=== PATIENT | female | born 1970 | race African-American/Black ===

== ENCOUNTER 2016-07-18 12:58 | Emergency (ER) | payer BC ==
[~2016-07-18] VITALS: Ht 160 cm; Wt 118.0 kg
[~2016-07-18 12:58] MED LIST: HYDR-4134 PO; HYDR25TA PO; LOSA100T14 PO; METO100T5 PO
[2016-07-18] MEDS ORDERED: ONDANSETRON HCL 4MG/2ML VIAL IV STA (14:24)
[2016-07-18] MEDS ORDERED: KETOROLAC 30MG/ML VIAL IV STA (14:24)
[2016-07-18 15:01] LABS: BASOPHILS % 0.5 % (0.0-2.0); EOSINOPHILS % 4.8 % (0.0-5.0); MEAN CORPUSCULAR HEMOGLOBIN 29.9 pg (28.0-32.0); MEAN CORPUSCULAR HGB CONC 34.3 g/dL (31.0-37.0); MEAN CORPUSCULAR VOLUME 87.3 fL (81.0-99.0); MEAN PLATELET VOLUME 9.2 fl (7.4-10.4); MONOCYTES % 9.2 % (2.0-8.0); NEUTROPHILS % 62.5 % (40.0-76.0); PLATELET 193 x1000/uL (130-400); RED BLOOD CELL COUNT 4.01 mill/uL (4.2-5.4); RED CELL DISTRIBUTION WIDTH 14.6 % (11.6-14.6); WHITE BLOOD COUNT 6.7 x1000/uL (4.5-11.0)
[2016-07-18 15:04] LABS: PARTIAL THROMBOPLASTIN TIME 27.3 sec (24.0-34.0); PROTHROMBIN TIME 10.5 sec
[2016-07-18 15:05] LABS: ALBUMIN 3.1 g/dL (3.4-5.0); ANION GAP 9; CALCIUM 8.7 mg/dL (8.5-10.1); CARBON DIOXIDE 28 mEq/L (21-32); CHLORIDE 107 mEq/L (98-107); INDEX HEMOLYSI 1 (1-3); INDEX ICTERIC 1 (1-4); INDEX LIPEMIC 1 (1-3); LIPASE 118 IU/L (73-393); UREA NITROGEN BLOOD 14 mg/dL (7-21)
[2016-07-18 15:08] LABS: ALANINE AMINOTRANSFERASE 27 IU/L (13-61)
[2016-07-18 15:13] LABS: TROPONIN I < 0.02 ng/mL (0.00-0.04); eGFR > 60 mL/min (>60)
[2016-07-18 16:49] VITALS: BP 155/93
== END 2016-07-18 17:47 | disposition home or self-care (01) ==
LOC: ER 15:02
DX: M54.12 Radiculopathy, cervical region (principal); M25.512 Pain in left shoulder; I10 Essential (primary) hypertension; Z98.890 Other specified postprocedural states; Z88.8 Allergy status to other drugs, medicaments and biological substances
CPT/HCPCS: 36415; 71010; 72125; 73030; 80053; 83690; 84484; 85025; 85610; 85730; 93005; 96374; 96375; 99285; J1885; J2405; Z7610

== ENCOUNTER → 2016-10-01 | Outpatient (CLI) | payer BC | END | disposition home or self-care (01) | LOC: RAD 13:49 | PROVIDERS: ATTEND Family Medicine | DX: J18.9 Pneumonia, unspecified organism (principal); J90 Pleural effusion, not elsewhere classified; I51.7 Cardiomegaly; R06.02 Shortness of breath | CPT/HCPCS: 71020 ==

== ENCOUNTER → 2016-11-22 | Outpatient (CLI) | payer BC ==
[2016-11-22 09:55] LABS: BASOPHILS % 0.7 % (0.0-2.0); EOSINOPHILS % 1.4 % (0.0-5.0); HEMOGLOBIN. 11.2 g/dL (12.0-16.0); LYMPHOCYTES % 29.3 % (20.0-50.0); MEAN CORPUSCULAR HEMOGLOBIN 27.4 pg (28.0-32.0); MEAN CORPUSCULAR VOLUME 82.9 fL (81.0-99.0); NEUTROPHILS % 64.6 % (40.0-76.0); PLATELET 137 x1000/uL (130-400); RED CELL DISTRIBUTION WIDTH 18.9 % (11.6-14.6)
== END | disposition home or self-care (01) ==
LOC: LAB 09:34
PROVIDERS: ATTEND Family Medicine
DX: Z00.00 Encounter for general adult medical examination without abnormal findings (principal)
CPT/HCPCS: 36415; 84550; 85025; 86618

== ENCOUNTER → 2017-05-03 | Outpatient (CLI) | payer BC ==
[~2017-05-03] MED LIST changes: +METO100T16 PO; -METO100T5 PO
[2017-05-03 09:39] LABS: BASOPHILS % 0.5 % (0.0-2.0); EOSINOPHILS % 1.2 % (0.0-5.0); HEMATOCRIT. 34.5 % (36.0-48.0); HEMOGLOBIN. 11.7 g/dL (12.0-16.0); LYMPHOCYTES % 23.1 % (20.0-50.0); MEAN CORPUSCULAR HEMOGLOBIN 28.9 pg (28.0-32.0); MEAN CORPUSCULAR VOLUME 85.1 fL (81.0-99.0); MEAN PLATELET VOLUME 8.2 fl (7.4-10.4); MONOCYTES % 4.4 % (2.0-8.0); NEUTROPHILS % 70.8 % (40.0-76.0); PLATELET 161 x1000/uL (130-400); RED BLOOD CELL COUNT 4.05 mill/uL (4.2-5.4); RED CELL DISTRIBUTION WIDTH 17.6 % (11.6-14.6)
[2017-05-03 10:20] LABS: CHLORIDE 104 mEq/L (98-107)
[2017-05-03 10:49] LABS: RHEUMATOID FACTOR SCREEN POSITIVE (NEGATIVE)
[2017-05-04 19:09] LABS: ANTI-NUCLEAR ANTIBODIES DIRECT Negative (Negative)
[2017-05-05 19:06] LABS: CYC CITRULLINATED PEP IgG/IgA 5 units (0-19)
== END | disposition home or self-care (01) ==
LOC: LAB 09:15
PROVIDERS: ATTEND Internal Medicine
DX: D72.819 Decreased white blood cell count, unspecified (principal); M79.646 Pain in unspecified finger(s); E55.9 Vitamin D deficiency, unspecified; I10 Essential (primary) hypertension
CPT/HCPCS: 36415; 80053; 82306; 85025; 85651; 86038; 86140; 86200; 86430

== ENCOUNTER → 2017-07-08 | Outpatient (CLI) | payer BC | END | disposition home or self-care (01) | LOC: RAD 11:58 | PROVIDERS: ATTEND Family Medicine | DX: L03.115 Cellulitis of right lower limb (principal); M79.89 Other specified soft tissue disorders | CPT/HCPCS: 73590 ==

== ENCOUNTER 2017-07-22 11:32 | Emergency (ER) | payer BC ==
[~2017-07-22] VITALS: Ht 160 cm; Wt 120.0 kg
[2017-07-22 12:08] VITALS: BP 113/69
[2017-07-22 14:06] LABS: BASOPHILS % 0.5 % (0.0-2.0); HEMATOCRIT. 32.3 % (36.0-48.0); HEMOGLOBIN. 10.8 g/dL (12.0-16.0); LYMPHOCYTES % 30.8 % (20.0-50.0); MEAN CORPUSCULAR HEMOGLOBIN 28.2 pg (28.0-32.0); MEAN CORPUSCULAR VOLUME 84.8 fL (81.0-99.0); MEAN PLATELET VOLUME 9.2 fl (7.4-10.4); MONOCYTES % 5.6 % (2.0-8.0); NEUTROPHILS % 60.1 % (40.0-76.0); PLATELET 122 x1000/uL (130-400); RED BLOOD CELL COUNT 3.81 mill/uL (4.2-5.4); RED CELL DISTRIBUTION WIDTH 15.7 % (11.6-14.6)
[2017-07-22 14:15] LABS: INR 1.1; PROTHROMBIN TIME 11.7 sec (9.4-11.6)
[2017-07-22 14:18] LABS: CHLORIDE 106 mEq/L (98-107)
[2017-07-22 14:31] LABS: CREATINE KINASE 44 IU/L (26-192)
[2017-07-22] MEDS ORDERED: BACITRACIN ZINC 15GM TUBE TOP ONE (15:15)
[2017-07-22] MEDS ORDERED: BACITRACIN ZINC OINT UDPKT TOP NR (15:30)
[2017-07-22] MEDS ORDERED: BACITRACIN ZINC 15GM TUBE TOP NR (15:30)
== END 2017-07-22 15:45 | disposition home or self-care (01) ==
LOC: ER 14:13
DX: T63.301A Toxic effect of unspecified spider venom, accidental (unintentional), initial encounter (principal); I10 Essential (primary) hypertension; Z88.8 Allergy status to other drugs, medicaments and biological substances; Z98.890 Other specified postprocedural states; Y92.018 Other place in single-family (private) house as the place of occurrence of the external cause
CPT/HCPCS: 36415; 80053; 82550; 85025; 85610; 99284; Z7610

== ENCOUNTER → 2017-08-27 | Outpatient (CLI) | payer BC | END | disposition home or self-care (01) | LOC: MAMMO 10:04 | PROVIDERS: ATTEND Family Medicine | DX: Z12.31 Encounter for screening mammogram for malignant neoplasm of breast (principal) | CPT/HCPCS: 77067 ==

== ENCOUNTER 2017-09-18 08:51 | Inpatient (IN) | payer BC ==
[~2017-09-18] VITALS: Ht 160 cm; Wt 94.3 kg
[2017-09-18] MEDS ORDERED: VANCOMYCIN 1 G PREMIX 200 ML IV ONE (10:45)
[2017-09-18] MEDS ORDERED: KETOROLAC 30MG/ML VIAL IV ONE (10:45)
[2017-09-18] MEDS ORDERED: PIPERACILLIN/TAZ 3.375G PREMIX 50 ML IV ONE (10:45)
[2017-09-18] MEDS ORDERED: SODIUM CHLORIDE 0.9% 1000ML BAG (SEPSIS BOLUS) IV ONE (10:45)
[2017-09-18 11:15] LABS: BASOPHILS % 0.6 % (0.0-2.0); EOSINOPHILS % 1.3 % (0.0-5.0); HEMATOCRIT. 33.4 % (36.0-48.0); HEMOGLOBIN. 10.8 g/dL (12.0-16.0); LYMPHOCYTES % 24.9 % (20.0-50.0); MEAN CORPUSCULAR HEMOGLOBIN 27.4 pg (28.0-32.0); MEAN CORPUSCULAR VOLUME 84.3 fL (81.0-99.0); MEAN PLATELET VOLUME 8.4 fl (7.4-10.4); MONOCYTES % 4.3 % (2.0-8.0); NEUTROPHILS % 68.9 % (40.0-76.0); PLATELET 202 x1000/uL (130-400); RED BLOOD CELL COUNT 3.96 mill/uL (4.2-5.4); RED CELL DISTRIBUTION WIDTH 17.7 % (11.6-14.6)
[2017-09-18 11:21] LABS: CHLORIDE 116 mEq/L (98-107)
[2017-09-18 11:23] LABS: INR 1.1; PARTIAL THROMBOPLASTIN TIME 28.4 sec (23.4-31.0); PROTHROMBIN TIME 11.4 sec (9.4-11.6)
[2017-09-18 12:38] LABS: HCG SCREEN NEGATIVE
[2017-09-18] MEDS ORDERED: CLONIDINE 0.1MG TABLET PO PRN (13:15)
[2017-09-18] MEDS ORDERED: MORPHINE SULFATE 4 MG/ML CPJ (NOT FOR IM USE) IV PRN (13:15)
[2017-09-18] MEDS ORDERED: ONDANSETRON HCL 4MG/2ML VIAL IV PRN (13:15)
[2017-09-18] MEDS ORDERED: ACETAMINOPHEN 325MG TABLET PO PRN (13:15)
[2017-09-18 15:40] VITALS: BP 137/77
[2017-09-18 15:51] VITALS: BP 137/77
[2017-09-18] MEDS: METOPROLOL TARTRATE 25MG TABLET PO SCH (16:30)
[2017-09-18] MEDS: AMLODIPINE 5MG TABLET PO SCH (16:44)
[2017-09-18] MEDS: SODIUM CHLORIDE 0.45% 1,000 ML IV SCH (16:45)
[2017-09-18] MEDS: PIPERACILLIN/TAZ 3.375G PREMIX 50 ML IV SCH (18:07)
[2017-09-18] MEDS: HYDROMORPHONE HCL/PF 2MG/ML CPJ IV PRN ×2 (18:07→21:59)
[2017-09-18] MEDS ORDERED: VANCOMYCIN 2,000 MG in DEXT 5% WATER 500 ML IV NR (18:30)
[2017-09-18 20:00] VITALS: BP 132/81
[2017-09-19] VITALS: BP 129/80
[2017-09-19] MEDS: PIPERACILLIN/TAZ 3.375G PREMIX 50 ML IV SCH ×4 (00:07→18:06)
[2017-09-19] MEDS: HYDROMORPHONE HCL/PF 2MG/ML CPJ IV PRN ×5 (02:06→21:03)
[2017-09-19 04:00] VITALS: BP 124/82
[2017-09-19 07:08] LABS: CHLORIDE 114 mEq/L (98-107)
[2017-09-19 07:09] LABS: EOSINOPHILS % 2.1 % (0.0-5.0); HEMOGLOBIN. 9.6 g/dL (12.0-16.0); LYMPHOCYTES % 28.9 % (20.0-50.0); MEAN CORPUSCULAR HEMOGLOBIN 27.4 pg (28.0-32.0); MEAN CORPUSCULAR VOLUME 82.8 fL (81.0-99.0); MEAN PLATELET VOLUME 8.4 fl (7.4-10.4); MONOCYTES % 6.7 % (2.0-8.0); NEUTROPHILS % 61.3 % (40.0-76.0); PLATELET 174 x1000/uL (130-400); RED CELL DISTRIBUTION WIDTH 17.2 % (11.6-14.6)
[2017-09-19 07:24] LABS: LDL CHOLESTEROL 73 mg/dL (5-100)
[2017-09-19 07:25] LABS: CREATINE KINASE 95 IU/L (26-192)
[2017-09-19 07:26] LABS: HDL CHOLESTEROL 26 mg/dL (40-59)
[2017-09-19 07:28] LABS: CREATINE KINASE MB FRACTION 1.1 ng/mL (0.5-3.6)
[2017-09-19] MEDS ORDERED: LIDOCAINE HCL/EPINEPHRINE 1%-EPI 1:100,000 20 ML VIAL ONE (07:31)
[2017-09-19] MEDS ORDERED: BUPIVACAINE HCL/PF 0.25% (2.5MG/ML) 10ML ONE (07:31)
[2017-09-19] MEDS ORDERED: SODIUM CHLORIDE 0.9% 1,000 ML IV ONE (08:22)
[2017-09-19] MEDS ORDERED: ONDANSETRON HCL 4MG/2ML VIAL IV PRN (08:30)
[2017-09-19] MEDS ORDERED: HYDROMORPHONE HCL/PF 2MG/ML CPJ IV PRN (08:30)
[2017-09-19] MEDS ORDERED: MEPERIDINE HCL/PF 25MG/ML CPJ IV PRN (08:30)
[2017-09-19 10:20] VITALS: BP 119/69
[2017-09-19 12:00] VITALS: BP 140/75
[2017-09-19] MEDS: AMLODIPINE 5MG TABLET PO SCH (12:41)
[2017-09-19] MEDS: METOPROLOL TARTRATE 25MG TABLET PO SCH ×2 (12:42→17:17)
[2017-09-19] MEDS: VANCOMYCIN 1250MG in DEXTROSE 5% WATER 250ML IV SCH (13:52)
[2017-09-19] MEDS ORDERED: TETANUS, DIPHTHERIA, PERTUSSIS VAC/PF 0.5ML (>7YR OLD) IM ONE (15:15)
[2017-09-19 16:00] VITALS: BP 121/78
[2017-09-19] MEDS: SODIUM CHLORIDE 0.45% 1,000 ML IV SCH ×2 (18:14→21:03)
[2017-09-19] MEDS ORDERED: VANCOMYCIN 1 G PREMIX 200 ML IV SCH (18:30)
[2017-09-19 20:00] VITALS: BP 139/79
[2017-09-20] VITALS: BP 122/69
[2017-09-20] MEDS: PIPERACILLIN/TAZ 3.375G PREMIX 50 ML IV SCH ×4 (00:01→17:12)
[2017-09-20] MEDS: HYDROMORPHONE HCL/PF 2MG/ML CPJ IV PRN ×5 (00:09→17:11)
[2017-09-20 04:00] VITALS: BP 129/78
[2017-09-20] MEDS: VANCOMYCIN 1250MG in DEXTROSE 5% WATER 250ML IV SCH (05:52)
[2017-09-20 08:02] VITALS: BP 117/60
[2017-09-20] MEDS: METOPROLOL TARTRATE 25MG TABLET PO SCH ×2 (08:30→17:16)
[2017-09-20] MEDS: AMLODIPINE 5MG TABLET PO SCH (08:30)
[2017-09-20] MEDS: SODIUM CHLORIDE 0.45% 1,000 ML IV SCH (08:38)
[2017-09-20] MEDS ORDERED: TETANUS, DIPHTHERIA, PERTUSSIS VAC/PF 0.5ML (>7YR OLD) IM ONE (09:30)
[2017-09-20 12:00] VITALS: BP 144/82
[2017-09-20 16:00] VITALS: BP 125/97
[2017-09-20 17:11] VITALS: BP 144/82
== END 2017-09-20 19:28 | disposition home health service (06) | DRG 571 ==
LOC: ER 08:51 → 7WST 12:47 → ENRESERV 12:55 → CANRESERV 12:55 → ENRESERV 14:26 → 7WST 15:58
PROVIDERS: ADMIT Internal Medicine Nephrology; ATTEND Internal Medicine Nephrology
PROC: 0JBQ0ZZ Excision of Right Foot Subcutaneous Tissue and Fascia, Open Approach (ICD-10-PCS; principal; 2017-09-19 07:30)
DX: L97.319 Non-pressure chronic ulcer of right ankle with unspecified severity (principal); N17.9 Acute kidney failure, unspecified; E46 Unspecified protein-calorie malnutrition; E87.2 Acidosis; I10 Essential (primary) hypertension; R00.1 Bradycardia, unspecified; D72.819 Decreased white blood cell count, unspecified; B96.5 Pseudomonas (aeruginosa) (mallei) (pseudomallei) as the cause of diseases classified elsewhere; B95.2 Enterococcus as the cause of diseases classified elsewhere; D64.9 Anemia, unspecified; T44.7X5A Adverse effect of beta-adrenoreceptor antagonists, initial encounter; W57.XXXA Bitten or stung by nonvenomous insect and other nonvenomous arthropods, initial encounter; Z79.899 Other long term (current) drug therapy; Z88.8 Allergy status to other drugs, medicaments and biological substances; Y93.89 Activity, other specified; Y92.89 Other specified places as the place of occurrence of the external cause; Y99.8 Other external cause status
CPT/HCPCS: 36415; 71045; 80053; 80061; 82550; 82553; 84443; 84484; 84703; 85025; 85610; 85651; 85730; 86850; 86900; 87040; 87070; 87075; 87077; 87186; 87205; 88304; 90715; 93005; 93306; 93971; 96365; 96367; 96375; 99285; J0330; J1170; J1885; J2250; J2270; J2405; J2543; J2704; J2765; J3010; J3370; J3490; J7030; J7060

== ENCOUNTER → 2017-10-08 | Outpatient (CLI) | payer BC ==
[~2017-10-08] MED LIST changes: +AMLO5TAB88 PO; +HYDR-4009 PO; -HYDR-4134 PO; +METO-396 PO; -METO100T16 PO
[2017-10-08 10:10] LABS: HEMATOCRIT. 31.3 % (36.0-48.0); HEMOGLOBIN. 10.3 g/dL (12.0-16.0); MEAN CORPUSCULAR HEMOGLOBIN 26.9 pg (28.0-32.0); MEAN CORPUSCULAR VOLUME 81.4 fL (81.0-99.0); MEAN PLATELET VOLUME 7.4 fl (7.4-10.4); PLATELET 263 x1000/uL (130-400); RED BLOOD CELL COUNT 3.84 mill/uL (4.2-5.4); RED CELL DISTRIBUTION WIDTH 15.9 % (11.6-14.6)
[2017-10-08 10:19] LABS: INR 1.1; PARTIAL THROMBOPLASTIN TIME 27.5 sec (23.4-31.0); PROTHROMBIN TIME 11.5 sec (9.4-11.6)
[2017-10-08 10:20] LABS: HCG SCREEN NEGATIVE
[2017-10-08 11:05] LABS: CHLORIDE 103 mEq/L (98-107)
[2017-10-08 11:40] LABS: PLATELET ESTIMATE NORMAL
== END | disposition home or self-care (01) ==
LOC: LAB 08:49
PROVIDERS: ATTEND Podiatrist Foot & Ankle Surgery
DX: T81.89XA Other complications of procedures, not elsewhere classified, initial encounter (principal); I10 Essential (primary) hypertension
CPT/HCPCS: 36415; 80048; 84703; 85025; 85610; 85730

== ENCOUNTER 2017-10-11 05:10 | Day surgery (SDC) | payer BC ==
[~2017-10-11] VITALS: Ht 160 cm; Wt 86.2 kg
[2017-10-11] MEDS ORDERED: LACTATED RINGERS 1,000 ML IV SCH (06:00)
[2017-10-11] MEDS ORDERED: PROPOFOL 200MG/20ML VIAL IV ONE (07:20)
[2017-10-11] MEDS ORDERED: GLYCOPYRROLATE 0.2 MG/ML 2ML VIAL ONE (07:26)
[2017-10-11] MEDS ORDERED: LIDOCAINE HCL/PF 1% 10 MG/ML 5ML VIAL ONE (07:27)
[2017-10-11] MEDS ORDERED: FENTANYL CITRATE/PF 50MCG/ML 5ML VIAL ONE (07:30)
[2017-10-11] MEDS ORDERED: NORMAL SALINE 0.9% 10 ML SYR ONE (07:32)
[2017-10-11] MEDS ORDERED: MINERAL OIL 10 ML VIAL MC ONE (07:32)
[2017-10-11] MEDS ORDERED: BACITRACIN 50,000 UNITS/VIAL ONE (07:32)
[2017-10-11] MEDS ORDERED: BUPIVACAINE HCL/EPINEPHRINE 0.5%/0.0005 30ML ONE (07:42)
[2017-10-11] MEDS ORDERED: HYDR-4134 PO (08:51)
== END 2017-10-11 10:30 | disposition home or self-care (01) ==
LOC: OR 05:10
PROVIDERS: ATTEND Podiatrist Foot & Ankle Surgery
DX: L97.919 Non-pressure chronic ulcer of unspecified part of right lower leg with unspecified severity (principal); I10 Essential (primary) hypertension; E46 Unspecified protein-calorie malnutrition; D64.9 Anemia, unspecified; J45.909 Unspecified asthma, uncomplicated; Z88.8 Allergy status to other drugs, medicaments and biological substances; Z79.899 Other long term (current) drug therapy; Z80.41 Family history of malignant neoplasm of ovary; Z82.49 Family history of ischemic heart disease and other diseases of the circulatory system; Z98.890 Other specified postprocedural states
CPT/HCPCS: 15100; 36415; 84132; A4216; J0171; J3010; J3490; J7120; J2704

== ENCOUNTER 2017-12-06 08:40 | Inpatient (IN) | payer BC ==
[~2017-12-06] VITALS: Ht 160 cm; Wt 120.8 kg
[2017-12-06] VITALS (61 sets, daily range): BP systolic 79–169; BP diastolic 39–133
[~2017-12-06 08:40] MED LIST changes: +HYDR-4134 PO; -HYDR25TA PO
[2017-12-06] MEDS ORDERED: METHYLPREDNISOLONE SOD SUCC 125 MG/2 ML VIAL IV STA (09:04)
[2017-12-06] MEDS ORDERED: ALBUTEROL (0.083%) 2.5MG/3ML NEB HHN STA (09:04)
[2017-12-06] MEDS ORDERED: IPRATROPIUM BROMIDE (0.02%) 0.5MG/2.5ML NEB HHN STA (09:04)
[2017-12-06] MEDS ORDERED: MAGNESIUM 2 G PREMIX 50 ML IV STA (09:04)
[2017-12-06] MEDS ORDERED: ALBUTEROL (0.083%) 2.5MG/3ML NEB ONE (09:07)
[2017-12-06] MEDS ORDERED: IPRATROPIUM BROMIDE (0.02%) 0.5MG/2.5ML NEB ONE (09:07)
[2017-12-06 09:14] LABS: HEMATOCRIT. 21.5 % (36.0-48.0); MEAN CORPUSCULAR HEMOGLOBIN 26.4 pg (28.0-32.0); MEAN CORPUSCULAR VOLUME 84.4 fL (81.0-99.0); MEAN PLATELET VOLUME 9.1 fl (7.4-10.4); PLATELET 127 x1000/uL (130-400); RED BLOOD CELL COUNT 2.55 mill/uL (4.2-5.4); RED CELL DISTRIBUTION WIDTH 18.7 % (11.6-14.6)
[2017-12-06 09:21] LABS: CHLORIDE 103 mEq/L (98-107)
[2017-12-06 09:24] LABS: D-DIMER 3.06 mg/L FEU (<0.50); INR 1.3; PARTIAL THROMBOPLASTIN TIME 22.1 sec (23.4-31.0); PROTHROMBIN TIME 13.4 sec (9.1-11.1)
[2017-12-06 09:28] LABS: HEMOGLOBIN. 6.7 g/dL (12.0-16.0)
[2017-12-06 09:36] LABS: HCG SCREEN NEGATIVE
[2017-12-06] MEDS ORDERED: MAGNESIUM SULFATE 2 GM in DEXTROSE 5% WATER 50 ML IV ONE (09:45)
[2017-12-06 09:57] LABS: ATYPICAL LYMPHOCYTES 2; NUCLEATED RED BLOOD CELLS 1 /100 WBC; PLATELET ESTIMATE NORMAL
[2017-12-06] MEDS ORDERED: MIDAZOLAM HCL 50 MG in DEXTROSE 5% WATER 40 ML IV ONE ×2 (10:00→11:45)
[2017-12-06] MEDS ORDERED: FUROSEMIDE 40MG/4ML VIAL IVP ONE (10:00)
[2017-12-06] MEDS ORDERED: VECURONIUM BROMIDE 10 MG/VIAL IV ONE (10:00)
[2017-12-06] MEDS ORDERED: SUCCINYLCHOLINE CHLORIDE 200MG/10ML IV ONE ×2 (10:00→13:11)
[2017-12-06] MEDS ORDERED: ETOMIDATE 2MG/ML 10ML VIAL IV ONE ×2 (10:00→13:11)
[2017-12-06] MEDS ORDERED: LORAZEPAM 2MG/ML CPJ IV ONE ×2 (10:00)
[2017-12-06] MEDS ORDERED: LEVOFLOXACIN 500MG PREMIX 100 ML IV ONE (10:15)
[2017-12-06 10:23] LABS: BG BASE EXCESS -14.2 mmol/L (-2.0-2.0); BG DEOXYHEMOGLOBIN 31.5 % (0.0-5.0); BG FRACTION INSPIRED OXYGEN 100; BG HCO3 ACT 14.6 mmol/L (22.0-26.0); BG METHEMOGLOBIN 0.5 % (0.0-1.5); BG PCO2 49.3 mmHg (35.0-45.0); BG SAMPLE SITE LEFT RADIAL; BG TIDAL VOLUME(mL) 600 mL; BG TOTAL HEMOGLOBIN 7.6 g/dL (12.0-18.0); BG VENT MODE VENT - A/C; BG VENT RATE 14 set
[2017-12-06] MEDS ORDERED: LEVOFLOXACIN 500MG PREMIX 100 ML IV SCH (10:30)
[2017-12-06] MEDS ORDERED: VANCOMYCIN 1 G PREMIX 200 ML IV SCH (10:30)
[2017-12-06] MEDS ORDERED: MORPHINE SULFATE 4 MG/ML CPJ (NOT FOR IM USE) IV PRN (10:30)
[2017-12-06] MEDS ORDERED: ACETAMINOPHEN 650MG SUPP PR PRN (10:30)
[2017-12-06] MEDS ORDERED: SODIUM BICARBONATE 8.4% 1 MEQ/ML 50ML SYR IV ONE ×3 (10:30→10:45)
[2017-12-06] MEDS ORDERED: NITROGLYCERIN 50MG PREMIX 250 ML IV ONE ×3 (10:30→10:35)
[2017-12-06] MEDS ORDERED: ONDANSETRON HCL 4MG/2ML INJ IV PRN (10:30)
[2017-12-06 10:58] LABS: CLARITY URINE CLOUDY (CLEAR); COLOR URINE DARK YELLOW (YELLOW); KETONES URINE TRACE (NEGATIVE); LEUKOCYTE ESTERASE URINE NEGATIVE (NEGATIVE); NITRITE URINE NEGATIVE (NEGATIVE); OCCULT BLOOD URINE 3+ (NEGATIVE); PROTEIN URINE 3+ (NEGATIVE); SPECIFIC GRAVITY URINE 1.018 (1.005-1.030)
[2017-12-06 11:27] LABS: *AMPHETAMINES SCREEN URINE NEGATIVE (NEGATIVE); *BARBITURATES SCREEN URINE NEGATIVE (NEGATIVE); *BENZODIAZEPINES SCREEN URINE NEGATIVE (NEGATIVE); *COCAINE SCREEN URINE NEGATIVE (NEGATIVE)
[2017-12-06 11:28] LABS: CANNABINOID URINE SCREEN NEGATIVE (NEGATIVE); METHADONE URINE SCREEN NEGATIVE (NEGATIVE); PHENCYCLIDINE URINE SCREEN NEGATIVE (NEGATIVE)
[2017-12-06 11:39] LABS: OPIATES URINE SCREEN PRESUMTIVE POSITIVE (NEGATIVE)
[2017-12-06] MEDS ORDERED: PIPERACILLIN/TAZ 3.375G PREMIX 50 ML IV NR (11:43)
[2017-12-06] MEDS ORDERED: SODIUM BICARBONATE 100 MEQ in DEXTROSE 5% WATER 1,000 ML IV SCH (13:00)
[2017-12-06] MEDS ORDERED: SODIUM CHLORIDE 0.9% 10ML VIAL ONE (13:11)
[2017-12-06 13:21] LABS: BG BASE EXCESS -7.4 mmol/L (-2.0-2.0); BG CARBOXYHEMOGLOBIN 0.8 % (0.5-1.5); BG DEOXYHEMOGLOBIN 3.4 % (0.0-5.0); BG FRACTION INSPIRED OXYGEN 100; BG HCO3 ACT 18.5 mmol/L (22.0-26.0); BG METHEMOGLOBIN 0.6 % (0.0-1.5); BG OXYGEN SATURATION 96.6 % (92.0-98.5); BG OXYHEMOGLOBIN 95.2 % (94.0-97.0); BG PCO2 39.1 mmHg (35.0-45.0); BG PH 7.292 (7.350-7.450); BG PO2 107.8 mmHg (75.0-100.0); BG SAMPLE SITE RIGHT RADIAL; BG TIDAL VOLUME(mL) 500 mL; BG TOTAL HEMOGLOBIN 6.7 g/dL (12.0-18.0); BG VENT MODE VENT - A/C; BG VENT RATE 20 set
[2017-12-06] MEDS: PANTOPRAZOLE SODIUM 40 MG/VIAL IV SCH (13:47)
[2017-12-06 14:42] LABS: FOLIC ACID (FOLATE) SERUM 15.8 ng/mL (>5.38)
[2017-12-06] MEDS ORDERED: VANCOMYCIN 2,000 MG in DEXT 5% WATER 500 ML IV SCH (15:00)
[2017-12-06 15:26] LABS: T4 FREE 0.91 ng/dL (0.76-1.46)
[2017-12-06 15:38] LABS: HEMOGLOBIN 5.8 g/dL (12.0-16.0)
[2017-12-06 15:45] LABS: AMMONIA 40 uMol/L (<32)
[2017-12-06] MEDS: IPRATROPIUM BROMIDE (0.02%) 0.5MG/2.5ML NEB HHN SCH ×2 (15:59→20:45)
[2017-12-06] MEDS ORDERED: FUROSEMIDE 40MG/4ML VIAL IV SCH (17:15)
[2017-12-06] MEDS: PHENYLEPHRINE 40 MG in DEXT 5% WATER 246 ML IV PRN (17:24)
[2017-12-06] MEDS: PIPERACILLIN/TAZ 3.375G PREMIX 50 ML IV SCH (18:09)
[2017-12-06] MEDS: PROPOFOL 10MG/ML 100ML 100 ML IV PRN ×2 (20:24→22:57)
[2017-12-06 22:09] LABS: HEMATOCRIT 23.2 % (36.0-48.0); HEMOGLOBIN 7.6 g/dL (12.0-16.0)
[2017-12-07] VITALS (95 sets, daily range): BP systolic 79–136; BP diastolic 39–88
[2017-12-07] MEDS: PIPERACILLIN/TAZ 3.375G PREMIX 50 ML IV SCH ×3 (00:43→12:10)
[2017-12-07] MEDS: IPRATROPIUM BROMIDE (0.02%) 0.5MG/2.5ML NEB HHN SCH ×7 (00:59→23:31)
[2017-12-07] MEDS: PROPOFOL 10MG/ML 100ML 100 ML IV PRN ×4 (04:46→19:41)
[2017-12-07 05:39] LABS: HEMATOCRIT. 24.9 % (36.0-48.0); HEMOGLOBIN. 8.2 g/dL (12.0-16.0); MEAN CORPUSCULAR HEMOGLOBIN 26.9 pg (28.0-32.0); MEAN CORPUSCULAR VOLUME 81.6 fL (81.0-99.0); RED BLOOD CELL COUNT 3.05 mill/uL (4.2-5.4); RED CELL DISTRIBUTION WIDTH 18.6 % (11.6-14.6)
[2017-12-07 07:40] LABS: NUCLEATED RED BLOOD CELLS 3 /100 WBC; PLATELET ESTIMATE DECREASED
[2017-12-07 07:46] LABS: BG BASE EXCESS -1.2 mmol/L (-2.0-2.0); BG CARBOXYHEMOGLOBIN 0.3 % (0.5-1.5); BG DEOXYHEMOGLOBIN 0.6 % (0.0-5.0); BG HCO3 ACT 21.2 mmol/L (22.0-26.0); BG METHEMOGLOBIN 0.4 % (0.0-1.5); BG OXYGEN SATURATION 99.4 % (92.0-98.5); BG OXYHEMOGLOBIN 98.7 % (94.0-97.0); BG PCO2 27.3 mmHg (35.0-45.0); BG PH 7.508 (7.350-7.450); BG PO2 267.8 mmHg (75.0-100.0); BG SAMPLE SITE RIGHT RADIAL; BG TIDAL VOLUME(mL) 500 mL; BG TOTAL HEMOGLOBIN 9.2 g/dL (12.0-18.0)
[2017-12-07] MEDS ORDERED: VANCOMYCIN 1250MG in DEXTROSE 5% WATER 250ML IV SCH (09:00)
[2017-12-07 09:19] LABS: BG VENT MODE VENT/AC
[2017-12-07 09:20] LABS: BG VENT RATE 20 set
[2017-12-07] MEDS: PANTOPRAZOLE SODIUM 40 MG/VIAL IV SCH (09:57)
[2017-12-07] MEDS: DEXT 5%/0.45% NACL 1000ML 1,000 ML IV SCH (09:57)
[2017-12-07 13:52] LABS: PLATELET 63 x1000/uL (130-400)
[2017-12-07] MEDS ORDERED: LIDOCAINE HCL/PF 1% 2ML VIAL ONE (14:02)
[2017-12-07] MEDS: PHENYLEPHRINE 40 MG in DEXT 5% WATER 246 ML IV PRN (14:40)
[2017-12-07 16:55] LABS: BG BASE EXCESS -1.5 mmol/L (-2.0-2.0); BG CARBOXYHEMOGLOBIN 0.2 % (0.5-1.5); BG DEOXYHEMOGLOBIN 3.8 % (0.0-5.0); BG HCO3 ACT 21.4 mmol/L (22.0-26.0); BG METHEMOGLOBIN 0.4 % (0.0-1.5); BG OXYGEN SATURATION 96.2 % (92.0-98.5); BG OXYHEMOGLOBIN 95.6 % (94.0-97.0); BG PH 7.485 (7.350-7.450); BG PO2 88.7 mmHg (75.0-100.0); BG SAMPLE SITE RIGHT RADIAL; BG TIDAL VOLUME(mL) 600 mL; BG TOTAL HEMOGLOBIN 8.8 g/dL (12.0-18.0); BG VENT MODE VENT - A/C; BG VENT RATE 16 set
[2017-12-07] MEDS: PIPERACILLIN/TAZ 2.25G PREMIX 50 ML IV SCH (21:40)
[2017-12-08] VITALS (103 sets, daily range): BP systolic 73–202; BP diastolic 33–143
[2017-12-08] MEDS: PROPOFOL 10MG/ML 100ML 100 ML IV PRN ×3 (00:02→06:52)
[2017-12-08] MEDS: PHENYLEPHRINE 40 MG in DEXT 5% WATER 246 ML IV PRN ×4 (00:03→22:56)
[2017-12-08] MEDS: IPRATROPIUM BROMIDE (0.02%) 0.5MG/2.5ML NEB HHN SCH ×6 (03:59→23:49)
[2017-12-08 05:51] LABS: HEMATOCRIT. 22.2 % (36.0-48.0); HEMOGLOBIN. 7.4 g/dL (12.0-16.0); MEAN CORPUSCULAR VOLUME 80.6 fL (81.0-99.0); RED BLOOD CELL COUNT 2.75 mill/uL (4.2-5.4); RED CELL DISTRIBUTION WIDTH 18.5 % (11.6-14.6)
[2017-12-08] MEDS: PIPERACILLIN/TAZ 2.25G PREMIX 50 ML IV SCH (06:13)
[2017-12-08 06:46] LABS: PLATELET 42 x1000/uL (130-400)
[2017-12-08] MEDS ORDERED: POTASSIUM CHLORIDE INJ 40 MEQ in DEXT 5% WATER 250 ML IV ONE (07:00)
[2017-12-08 07:14] LABS: PHOSPHORUS 3.2 mg/dL (2.5-4.9)
[2017-12-08] MEDS ORDERED: KCL 20MEQ/100ML PREMIX 100 ML IV ONE (07:30)
[2017-12-08 08:22] LABS: BG BASE EXCESS -0.4 mmol/L (-2.0-2.0); BG CARBOXYHEMOGLOBIN 0.7 % (0.5-1.5); BG DEOXYHEMOGLOBIN 2.2 % (0.0-5.0); BG FRACTION INSPIRED OXYGEN 60; BG HCO3 ACT 22.7 mmol/L (22.0-26.0); BG METHEMOGLOBIN 0.3 % (0.0-1.5); BG OXYGEN SATURATION 97.8 % (92.0-98.5); BG OXYHEMOGLOBIN 96.8 % (94.0-97.0); BG PCO2 30.4 mmHg (35.0-45.0); BG PH 7.491 (7.350-7.450); BG PO2 106.9 mmHg (75.0-100.0); BG SAMPLE SITE RIGHT RADIAL; BG TIDAL VOLUME(mL) 600 mL; BG TOTAL HEMOGLOBIN 7.2 g/dL (12.0-18.0); BG VENT MODE VENT - A/C; BG VENT RATE 16 set
[2017-12-08] MEDS: PANTOPRAZOLE SODIUM 40 MG/VIAL IV SCH (09:35)
[2017-12-08] MEDS: FOLIC ACID/VITAMIN B COMP W-C TABLET NG SCH (09:35)
[2017-12-08] MEDS: DEXT 5%/0.45% NACL 1000ML 1,000 ML IV SCH (09:36)
[2017-12-08] MEDS: FENTANYL CITRATE/PF 500 MCG in SODIUM CHLORIDE 0.9% 40 ML IV PRN ×4 (09:38→22:56)
[2017-12-08 10:05] LABS: NUCLEATED RED BLOOD CELLS 4 /100 WBC; PLATELET ESTIMATE MARKEDLY DECREASED
[2017-12-08] MEDS ORDERED: POTASSIUM CHLORIDE INJ 40 MEQ in DEXT 5% WATER 250 ML IV NR (11:00)
[2017-12-08] MEDS ORDERED: LORAZEPAM 2MG/ML CPJ IV PRN (11:45)
[2017-12-08] MEDS: LORAZEPAM 2MG/ML CPJ IV PRN (14:40)
[2017-12-08] MEDS: METRONIDAZOLE 500MG TABLET PO SCH (14:41)
[2017-12-08] MEDS: CEFEPIME 1,000 MG in DEXTROSE 5% WATER 50 ML IV SCH (14:41)
[2017-12-08] MEDS ORDERED: LORAZEPAM 2MG/ML CPJ IV NR (16:04)
[2017-12-08] MEDS: MIDAZOLAM HCL 100 MG in DEXT 5% WATER 80 ML IV PRN (16:19)
[2017-12-09] VITALS (94 sets, daily range): BP systolic 81–148; BP diastolic 37–82
[2017-12-09] MEDS: MIDAZOLAM HCL 100 MG in DEXT 5% WATER 80 ML IV PRN ×2 (00:18→11:33)
[2017-12-09] MEDS: IPRATROPIUM BROMIDE (0.02%) 0.5MG/2.5ML NEB HHN SCH ×5 (04:16→20:19)
[2017-12-09] MEDS: FENTANYL CITRATE/PF 500 MCG in SODIUM CHLORIDE 0.9% 40 ML IV PRN ×3 (04:42→21:29)
[2017-12-09] MEDS: METRONIDAZOLE 500MG TABLET PO SCH ×2 (05:59→17:05)
[2017-12-09 06:33] LABS: PHOSPHORUS 4.4 mg/dL (2.5-4.9)
[2017-12-09] MEDS: PHENYLEPHRINE 40 MG in DEXT 5% WATER 246 ML IV PRN ×3 (06:39→19:06)
[2017-12-09 06:40] LABS: HEMATOCRIT. 24.8 % (36.0-48.0); HEMOGLOBIN. 8.1 g/dL (12.0-16.0); MEAN CORPUSCULAR HEMOGLOBIN 26.4 pg (28.0-32.0); MEAN CORPUSCULAR VOLUME 80.8 fL (81.0-99.0); MEAN PLATELET VOLUME 10.8 fl (7.4-10.4); RED BLOOD CELL COUNT 3.07 mill/uL (4.2-5.4); RED CELL DISTRIBUTION WIDTH 18.3 % (11.6-14.6)
[2017-12-09 06:45] LABS: PLATELET 33 x1000/uL (130-400)
[2017-12-09] MEDS: DEXT 5%/0.45% NACL 1000ML 1,000 ML IV SCH ×2 (07:59→20:24)
[2017-12-09] MEDS: FOLIC ACID/VITAMIN B COMP W-C TABLET NG SCH (08:12)
[2017-12-09] MEDS: PANTOPRAZOLE SODIUM 40 MG/VIAL IV SCH (08:12)
[2017-12-09 08:17] LABS: BG BASE EXCESS -2.2 mmol/L (-2.0-2.0); BG CARBOXYHEMOGLOBIN 0.7 % (0.5-1.5); BG FRACTION INSPIRED OXYGEN 70; BG HCO3 ACT 21.4 mmol/L (22.0-26.0); BG METHEMOGLOBIN 0.3 % (0.0-1.5); BG PCO2 31.5 mmHg (35.0-45.0); BG PH 7.449 (7.350-7.450); BG PO2 111.1 mmHg (75.0-100.0); BG SAMPLE SITE RIGHT RADIAL; BG TIDAL VOLUME(mL) 600 mL; BG TOTAL HEMOGLOBIN 8.6 g/dL (12.0-18.0); BG VENT MODE VENT - A/C; BG VENT RATE 16 set
[2017-12-09 09:06] LABS: NUCLEATED RED BLOOD CELLS 4 /100 WBC
[2017-12-09 09:07] LABS: PLATELET ESTIMATE MARKEDLY DECREASED
[2017-12-09] MEDS: CEFEPIME 1,000 MG in DEXTROSE 5% WATER 50 ML IV SCH (15:00)
[2017-12-09] MEDS ORDERED: VANCOMYCIN 1 G PREMIX 200 ML IV SCH (16:00)
[2017-12-10] VITALS (106 sets, daily range): BP systolic 74–143; BP diastolic 39–94
[2017-12-10] MEDS: IPRATROPIUM BROMIDE (0.02%) 0.5MG/2.5ML NEB HHN SCH ×6 (00:30→20:30)
[2017-12-10] MEDS: PHENYLEPHRINE 40 MG in DEXT 5% WATER 246 ML IV PRN ×2 (01:32→18:17)
[2017-12-10] MEDS: METRONIDAZOLE 500MG TABLET PO SCH ×2 (05:47→18:42)
[2017-12-10 06:21] LABS: HEMATOCRIT. 22.8 % (36.0-48.0); HEMOGLOBIN. 7.7 g/dL (12.0-16.0); MEAN CORPUSCULAR HEMOGLOBIN 27.1 pg (28.0-32.0); MEAN CORPUSCULAR VOLUME 80.7 fL (81.0-99.0); MEAN PLATELET VOLUME 10.4 fl (7.4-10.4); RED BLOOD CELL COUNT 2.83 mill/uL (4.2-5.4); RED CELL DISTRIBUTION WIDTH 18.3 % (11.6-14.6)
[2017-12-10] MEDS: FENTANYL CITRATE/PF 500 MCG in SODIUM CHLORIDE 0.9% 40 ML IV PRN ×2 (06:34→18:28)
[2017-12-10] MEDS: DEXT 5%/0.45% NACL 1000ML 1,000 ML IV SCH ×2 (06:40→16:07)
[2017-12-10] MEDS: FOLIC ACID/VITAMIN B COMP W-C TABLET NG SCH (08:47)
[2017-12-10] MEDS: PANTOPRAZOLE SODIUM 40 MG/VIAL IV SCH (08:47)
[2017-12-10 13:15] LABS: NUCLEATED RED BLOOD CELLS 1 /100 WBC
[2017-12-10 13:16] LABS: PLATELET 17 x1000/uL (130-400); PLATELET ESTIMATE MARKEDLY DECREASED
[2017-12-10 13:47] LABS: BG BASE EXCESS -3.6 mmol/L (-2.0-2.0); BG CARBOXYHEMOGLOBIN 0.2 % (0.5-1.5); BG FRACTION INSPIRED OXYGEN 70; BG METHEMOGLOBIN 0.5 % (0.0-1.5); BG OXYHEMOGLOBIN 96.3 % (94.0-97.0); BG PCO2 30.8 mmHg (35.0-45.0); BG PO2 98.9 mmHg (75.0-100.0); BG SAMPLE SITE RIGHT RADIAL; BG TIDAL VOLUME(mL) 600 mL; BG TOTAL HEMOGLOBIN 9.3 g/dL (12.0-18.0); BG VENT MODE VENT - A/C; BG VENT RATE 16 set
[2017-12-10] MEDS: CEFEPIME 1,000 MG in DEXTROSE 5% WATER 50 ML IV SCH (15:05)
[2017-12-10] MEDS: MIDAZOLAM HCL 100 MG in DEXT 5% WATER 80 ML IV PRN (18:30)
[2017-12-11] VITALS (97 sets, daily range): BP systolic 85–144; BP diastolic 42–83
[2017-12-11] MEDS: IPRATROPIUM BROMIDE (0.02%) 0.5MG/2.5ML NEB HHN SCH ×6 (01:31→20:27)
[2017-12-11] MEDS: DEXT 5%/0.45% NACL 1000ML 1,000 ML IV SCH (01:49)
[2017-12-11] MEDS: METRONIDAZOLE 500MG TABLET PO SCH ×2 (05:18→18:20)
[2017-12-11 05:54] LABS: MEAN CORPUSCULAR HEMOGLOBIN 26.5 pg (28.0-32.0); MEAN CORPUSCULAR VOLUME 79.5 fL (81.0-99.0); MEAN PLATELET VOLUME 11.3 fl (7.4-10.4)
[2017-12-11 06:15] LABS: PHOSPHORUS 5.9 mg/dL (2.5-4.9)
[2017-12-11 06:42] LABS: HEMOGLOBIN. 6.9 g/dL (12.0-16.0)
[2017-12-11 06:43] LABS: HEMATOCRIT. 20.7 % (36.0-48.0); PLATELET 32 x1000/uL (130-400)
[2017-12-11] MEDS: FENTANYL CITRATE/PF 500 MCG in SODIUM CHLORIDE 0.9% 40 ML IV PRN ×2 (07:43→17:21)
[2017-12-11] MEDS: PHENYLEPHRINE 40 MG in DEXT 5% WATER 246 ML IV PRN ×2 (07:43→22:07)
[2017-12-11 08:26] LABS: BG BASE EXCESS -0.6 mmol/L (-2.0-2.0); BG CARBOXYHEMOGLOBIN 1.1 % (0.5-1.5); BG DEOXYHEMOGLOBIN 6.5 % (0.0-5.0); BG FRACTION INSPIRED OXYGEN 50; BG HCO3 ACT 23.4 mmol/L (22.0-26.0); BG METHEMOGLOBIN 0.2 % (0.0-1.5); BG OXYGEN SATURATION 93.4 % (92.0-98.5); BG OXYHEMOGLOBIN 92.2 % (94.0-97.0); BG PCO2 35.5 mmHg (35.0-45.0); BG PH 7.436 (7.350-7.450); BG SAMPLE SITE RIGHT RADIAL; BG TIDAL VOLUME(mL) 600 mL; BG VENT MODE VENT - A/C; BG VENT RATE 16 set
[2017-12-11 09:22] LABS: NUCLEATED RED BLOOD CELLS 2 /100 WBC; PLATELET ESTIMATE MARKEDLY DECREASED
[2017-12-11] MEDS: PANTOPRAZOLE SODIUM 40 MG/VIAL IV SCH (09:28)
[2017-12-11] MEDS: FOLIC ACID/VITAMIN B COMP W-C TABLET NG SCH (09:28)
[2017-12-11] MEDS ORDERED: KCL 20MEQ/100ML PREMIX 100 ML IV NR (11:30)
[2017-12-11] MEDS ORDERED: SUCRALFATE 1 G/10 ML UDC PO SCH (12:00)
[2017-12-11] MEDS: MIDAZOLAM HCL 100 MG in DEXT 5% WATER 80 ML IV PRN (12:05)
[2017-12-11 12:24] LABS: HEMATOCRIT 21.2 % (36.0-48.0)
[2017-12-11] MEDS ORDERED: VANCOMYCIN 1 G PREMIX 200 ML IV SCH (16:00)
[2017-12-11] MEDS: CEFEPIME 1,000 MG in DEXTROSE 5% WATER 50 ML IV SCH (16:07)
[2017-12-11 20:05] LABS: HEMATOCRIT 22.9 % (36.0-48.0); HEMOGLOBIN 7.9 g/dL (12.0-16.0)
[2017-12-12] VITALS (97 sets, daily range): BP systolic 92–171; BP diastolic 42–102
[2017-12-12] MEDS: IPRATROPIUM BROMIDE (0.02%) 0.5MG/2.5ML NEB HHN SCH ×5 (00:53→20:04)
[2017-12-12] MEDS: METRONIDAZOLE 500MG TABLET PO SCH ×2 (05:15→18:26)
[2017-12-12] MEDS: FENTANYL CITRATE/PF 500 MCG in SODIUM CHLORIDE 0.9% 40 ML IV PRN (05:15)
[2017-12-12 05:49] LABS: HEMATOCRIT. 24.1 % (36.0-48.0); MEAN CORPUSCULAR HEMOGLOBIN 26.9 pg (28.0-32.0); MEAN CORPUSCULAR VOLUME 80.4 fL (81.0-99.0); MEAN PLATELET VOLUME 10.8 fl (7.4-10.4)
[2017-12-12] MEDS: PANTOPRAZOLE SODIUM 40 MG/VIAL IV SCH (08:18)
[2017-12-12] MEDS: FOLIC ACID/VITAMIN B COMP W-C TABLET NG SCH (08:18)
[2017-12-12 08:44] LABS: NUCLEATED RED BLOOD CELLS 1 /100 WBC
[2017-12-12 08:45] LABS: PLATELET 38 x1000/uL (130-400); PLATELET ESTIMATE MARKEDLY DECREASED
[2017-12-12 09:06] LABS: IMMUNOGLOBULIN A 117 mg/dL (87-352); IMMUNOGLOBULIN G 1553 mg/dL (700-1600); IMMUNOGLOBULIN M 637 mg/dL (26-217)
[2017-12-12] MEDS ORDERED: LORAZEPAM 2MG/ML CPJ IV SCH ×2 (09:15→09:45)
[2017-12-12] MEDS ORDERED: MORPHINE SULFATE 4 MG/ML CPJ (NOT FOR IM USE) IV PRN (10:00)
[2017-12-12 10:08] LABS: HIV SCREEN 4G Non Reactive (Non Reactive)
[2017-12-12 11:08] LABS: BG BASE EXCESS -5.2 mmol/L (-2.0-2.0); BG CARBOXYHEMOGLOBIN 0.6 % (0.5-1.5); BG FRACTION INSPIRED OXYGEN 50; BG HCO3 ACT 18.5 mmol/L (22.0-26.0); BG METHEMOGLOBIN 0.4 % (0.0-1.5); BG OXYGEN SATURATION 94.9 % (92.0-98.5); BG PCO2 29.3 mmHg (35.0-45.0); BG PH 7.418 (7.350-7.450); BG PO2 81.4 mmHg (75.0-100.0); BG PRESSURE SUPPORT 12; BG SAMPLE SITE RIGHT RADIAL; BG TOTAL HEMOGLOBIN 8.8 g/dL (12.0-18.0); BG VENT MODE VENT - CPAP
[2017-12-12] MEDS ORDERED: CEFTRIAXONE 2 G PREMIX 50 ML IV SCH (13:45)
[2017-12-12] MEDS ORDERED: ACETAMINOPHEN 650MG/20.3ML UDC PO PRN (14:00)
[2017-12-12] MEDS: LORAZEPAM 2MG/ML CPJ IV PRN ×2 (15:25→22:56)
[2017-12-12] MEDS ORDERED: CEFTRIAXONE 2 G in DEXTROSE 5% WATER 50 ML IV SCH (16:00)
[2017-12-12] MEDS: CEFTRIAXONE 2 G in DEXTROSE 5% WATER 50 ML IV SCH (16:28)
[2017-12-12] MEDS: METOCLOPRAMIDE HCL 10MG/2ML VIAL IV SCH (18:26)
[2017-12-12 19:10] LABS: ANTI-NUCLEAR ANTIBODIES DIRECT Positive (Negative)
[2017-12-13] VITALS (65 sets, daily range): BP systolic 93–175; BP diastolic 46–118
[2017-12-13] MEDS: IPRATROPIUM BROMIDE (0.02%) 0.5MG/2.5ML NEB HHN SCH ×6 (00:18→19:37)
[2017-12-13] MEDS: METOCLOPRAMIDE HCL 10MG/2ML VIAL IV SCH ×4 (01:05→17:23)
[2017-12-13] MEDS: METRONIDAZOLE 500MG TABLET PO SCH ×2 (05:49→17:22)
[2017-12-13 06:00] LABS: HEMATOCRIT. 23.1 % (36.0-48.0); HEMOGLOBIN. 7.9 g/dL (12.0-16.0); MEAN CORPUSCULAR HEMOGLOBIN 27.6 pg (28.0-32.0); MEAN CORPUSCULAR VOLUME 80.4 fL (81.0-99.0); PLATELET 55 x1000/uL (130-400); RED BLOOD CELL COUNT 2.87 mill/uL (4.2-5.4); RED CELL DISTRIBUTION WIDTH 18.3 % (11.6-14.6)
[2017-12-13] MEDS: LORAZEPAM 2MG/ML CPJ IV PRN ×3 (06:07→22:14)
[2017-12-13 07:33] LABS: PLATELET ESTIMATE DECREASED
[2017-12-13] MEDS: PANTOPRAZOLE SODIUM 40 MG/VIAL IV SCH (08:52)
[2017-12-13] MEDS: FOLIC ACID/VITAMIN B COMP W-C TABLET NG SCH (08:52)
[2017-12-13] MEDS: CEFTRIAXONE 2 G in DEXTROSE 5% WATER 50 ML IV SCH (08:53)
[2017-12-13] MEDS: MORPHINE SULFATE 4 MG/ML CPJ (NOT FOR IM USE) IV PRN ×3 (12:01→22:36)
[2017-12-13 13:07] LABS: ANTI-CARDIOLIPIN AB IGA < 9 APL U/mL (0-11); ANTI-CARDIOLIPIN AB IGG < 9 GPL U/mL (0-14); ANTI-CARDIOLIPIN AB IGM 16 MPL U/mL (0-12); ANTI-THROMBIN ACTIVITY 98 % (75-135); DRVVT LA 81.5 sec (0.0-47.0); PROTEIN C FUNCTIONAL 69 % (73-180); PTT-LA 42.5 sec (0.0-51.9)
[2017-12-13 14:23] LABS: PARVOVIRUS B19 HUMAN IGG 8.8 index (0.0-0.8); PARVOVIRUS B19 HUMAN IGM 0.4 index (0.0-0.8)
[2017-12-13 15:06] LABS: ANTI-MYELOPEROXIDASE AB 17.1 U/mL (0.0-9.0); ANTI-PROTEINASE 3 ABS 6.2 U/mL (0.0-3.5)
[2017-12-14] VITALS (39 sets, daily range): BP systolic 106–165; BP diastolic 21–125
[2017-12-14] MEDS: EPOETIN ALFA 10000UNITS/ML VIAL SUBCUT SCH (00:19)
[2017-12-14] MEDS: IPRATROPIUM BROMIDE (0.02%) 0.5MG/2.5ML NEB HHN SCH ×6 (00:54→20:10)
[2017-12-14] MEDS: METOCLOPRAMIDE HCL 10MG/2ML VIAL IV SCH ×4 (02:03→18:54)
[2017-12-14 05:41] LABS: HEMATOCRIT. 21.9 % (36.0-48.0); HEMOGLOBIN. 7.4 g/dL (12.0-16.0); MEAN CORPUSCULAR HEMOGLOBIN 26.9 pg (28.0-32.0); MEAN CORPUSCULAR VOLUME 80.1 fL (81.0-99.0); MEAN PLATELET VOLUME 9.6 fl (7.4-10.4); PLATELET 62 x1000/uL (130-400); RED BLOOD CELL COUNT 2.74 mill/uL (4.2-5.4); RED CELL DISTRIBUTION WIDTH 18.2 % (11.6-14.6)
[2017-12-14] MEDS: METRONIDAZOLE 500MG TABLET PO SCH ×2 (06:08→18:54)
[2017-12-14 07:14] LABS: DRVVT LA CONFIRMATION 1.8 ratio (0.8-1.2); DRVVT MIX LA 64.3 sec (0.0-47.0); LUPUS ANTICOAG INTERPRETATION Comment: (.)
[2017-12-14 08:00] LABS: PLATELET ESTIMATE DECREASED
[2017-12-14] MEDS: CEFTRIAXONE 2 G in DEXTROSE 5% WATER 50 ML IV SCH (09:33)
[2017-12-14] MEDS: FOLIC ACID/VITAMIN B COMP W-C TABLET NG SCH (09:33)
[2017-12-14] MEDS: LORAZEPAM 2MG/ML CPJ IV PRN (10:22)
[2017-12-14] MEDS: PANTOPRAZOLE SODIUM 40 MG/VIAL IV SCH (10:27)
[2017-12-14 14:59] LABS: BG BASE EXCESS -3.4 mmol/L (-2.0-2.0); BG CARBOXYHEMOGLOBIN 0.5 % (0.5-1.5); BG DEOXYHEMOGLOBIN 5.7 % (0.0-5.0); BG FRACTION INSPIRED OXYGEN 40; BG HCO3 ACT 20.4 mmol/L (22.0-26.0); BG METHEMOGLOBIN 0.3 % (0.0-1.5); BG OXYGEN SATURATION 94.3 % (92.0-98.5); BG OXYHEMOGLOBIN 93.5 % (94.0-97.0); BG PCO2 31.7 mmHg (35.0-45.0); BG PH 7.426 (7.350-7.450); BG PO2 80.2 mmHg (75.0-100.0); BG PRESSURE SUPPORT 8; BG SAMPLE SITE RIGHT BRACHIAL; BG TOTAL HEMOGLOBIN 8.9 g/dL (12.0-18.0); BG VENT MODE VENT - CPAP
[2017-12-14] MEDS ORDERED: RACEPINEPHRINE 2.25% 0.5ML NEB VIAL HHN PRN (15:15)
[2017-12-14] MEDS: METHYLPREDNISOLONE SOD SUCC 125 MG/2 ML VIAL IV SCH (15:35)
[2017-12-14] MEDS: IPRATROPIUM/ALBUTEROL 0.5-3(2.5)MG/3ML NEB HHN PRN (16:22)
[2017-12-14] MEDS: FAMOTIDINE 20MG/2ML VIAL IV SCH (18:54)
[2017-12-15] VITALS (40 sets, daily range): BP systolic 107–173; BP diastolic 21–118
[2017-12-15] MEDS: IPRATROPIUM BROMIDE (0.02%) 0.5MG/2.5ML NEB HHN SCH ×6 (00:10→20:41)
[2017-12-15] MEDS: METOCLOPRAMIDE HCL 10MG/2ML VIAL IV SCH ×4 (00:24→18:06)
[2017-12-15] MEDS: METHYLPREDNISOLONE SOD SUCC 125 MG/2 ML VIAL IV SCH ×3 (00:24→16:00)
[2017-12-15] MEDS: METRONIDAZOLE 500MG TABLET PO SCH (05:21)
[2017-12-15 05:36] LABS: HEMATOCRIT. 25.2 % (36.0-48.0); HEMOGLOBIN. 8.3 g/dL (12.0-16.0); MEAN CORPUSCULAR HEMOGLOBIN 26.7 pg (28.0-32.0); MEAN CORPUSCULAR VOLUME 80.6 fL (81.0-99.0); MEAN PLATELET VOLUME 9.2 fl (7.4-10.4); PLATELET 100 x1000/uL (130-400); RED BLOOD CELL COUNT 3.12 mill/uL (4.2-5.4); RED CELL DISTRIBUTION WIDTH 17.8 % (11.6-14.6)
[2017-12-15 06:05] LABS: PHOSPHORUS 5.4 mg/dL (2.5-4.9)
[2017-12-15] MEDS ORDERED: FUROSEMIDE 40MG/4ML VIAL IVP NR (07:07)
[2017-12-15] MEDS: CEFTRIAXONE 2 G in DEXTROSE 5% WATER 50 ML IV SCH (08:35)
[2017-12-15] MEDS: FOLIC ACID/VITAMIN B COMP W-C TABLET NG SCH (08:35)
[2017-12-15 09:59] LABS: PLATELET ESTIMATE DECREASED
[2017-12-15] MEDS: AMLODIPINE 2.5MG TABLET PO SCH ×2 (12:59→22:01)
[2017-12-15] MEDS: CLONIDINE 0.1MG TABLET PO PRN (14:30)
[2017-12-15] MEDS: FAMOTIDINE 20MG/2ML VIAL IV SCH (18:06)
[2017-12-16] VITALS (16 sets, daily range): BP systolic 128–164; BP diastolic 41–108
[2017-12-16] MEDS: METHYLPREDNISOLONE SOD SUCC 125 MG/2 ML VIAL IV SCH ×4 (00:19→23:17)
[2017-12-16] MEDS: METOCLOPRAMIDE HCL 10MG/2ML VIAL IV SCH ×5 (00:22→23:17)
[2017-12-16] MEDS: IPRATROPIUM BROMIDE (0.02%) 0.5MG/2.5ML NEB HHN SCH ×9 (00:51→22:05)
[2017-12-16 06:47] LABS: HEMOGLOBIN. 8.7 g/dL (12.0-16.0); MEAN CORPUSCULAR VOLUME 80.6 fL (81.0-99.0); MEAN PLATELET VOLUME 8.8 fl (7.4-10.4); PLATELET 190 x1000/uL (130-400); RED BLOOD CELL COUNT 3.23 mill/uL (4.2-5.4); RED CELL DISTRIBUTION WIDTH 17.7 % (11.6-14.6)
[2017-12-16 07:37] LABS: PHOSPHORUS 5.3 mg/dL (2.5-4.9)
[2017-12-16] MEDS: FOLIC ACID/VITAMIN B COMP W-C TABLET NG SCH (08:46)
[2017-12-16] MEDS: CEFTRIAXONE 2 G in DEXTROSE 5% WATER 50 ML IV SCH (08:46)
[2017-12-16] MEDS: AMLODIPINE 2.5MG TABLET PO SCH ×2 (08:46→21:17)
[2017-12-16 10:53] LABS: PLATELET ESTIMATE NORMAL
[2017-12-16] MEDS: GUAIFENESIN 600MG ER TABLET PO SCH ×2 (12:20→21:18)
[2017-12-16] MEDS: ASPIRIN 81MG EC TABLET PO SCH (13:25)
[2017-12-16 15:07] LABS: ATYPICAL P-ANCA <1:20 titer (Neg:<1:20); CYTOPLASMIC C-ANCA <1:20 titer (Neg:<1:20)
[2017-12-16] MEDS: FAMOTIDINE 20MG/2ML VIAL IV SCH (17:08)
[2017-12-16] MEDS: EPOETIN ALFA 10000UNITS/ML VIAL SUBCUT SCH (21:18)
[2017-12-16] MEDS: CLONIDINE 0.1MG TABLET PO PRN (23:17)
[2017-12-17] VITALS (13 sets, daily range): BP systolic 103–156; BP diastolic 33–106
[2017-12-17] MEDS: IPRATROPIUM BROMIDE (0.02%) 0.5MG/2.5ML NEB HHN SCH ×5 (00:40→23:39)
[2017-12-17] MEDS: METOCLOPRAMIDE HCL 10MG/2ML VIAL IV SCH ×4 (00:40→23:28)
[2017-12-17 07:16] LABS: COMPLEMENT C3 97 mg/dL (82-167)
[2017-12-17 08:14] LABS: HEMATOCRIT. 26.2 % (36.0-48.0); HEMOGLOBIN. 8.7 g/dL (12.0-16.0); MEAN CORPUSCULAR VOLUME 81.3 fL (81.0-99.0); MEAN PLATELET VOLUME 8.4 fl (7.4-10.4); PLATELET 229 x1000/uL (130-400); RED BLOOD CELL COUNT 3.23 mill/uL (4.2-5.4)
[2017-12-17] MEDS: CEFTRIAXONE 2 G in DEXTROSE 5% WATER 50 ML IV SCH (08:49)
[2017-12-17] MEDS: METHYLPREDNISOLONE SOD SUCC 125 MG/2 ML VIAL IV SCH ×3 (08:49→23:28)
[2017-12-17] MEDS: AMLODIPINE 2.5MG TABLET PO SCH ×2 (09:00→21:25)
[2017-12-17] MEDS: ASPIRIN 81MG EC TABLET PO SCH (09:00)
[2017-12-17] MEDS: FOLIC ACID/VITAMIN B COMP W-C TABLET NG SCH (09:00)
[2017-12-17] MEDS: GUAIFENESIN 600MG ER TABLET PO SCH ×2 (09:00→21:25)
[2017-12-17] MEDS ORDERED: CLOPIDOGREL 75MG TABLET PO SCH (09:00)
[2017-12-17] MEDS ORDERED: ENALAPRIL 2.5MG TABLET PO ONE (09:45)
[2017-12-17 10:05] LABS: PHOSPHORUS 5.1 mg/dL (2.5-4.9)
[2017-12-17] MEDS ORDERED: PROPOFOL 200MG/20ML VIAL IV ONE ×2 (12:37→12:55)
[2017-12-17] MEDS ORDERED: LIDOCAINE HCL 1% 20ML VIAL (Pyxis) INJ ONE (12:39)
[2017-12-17 12:40] LABS: NUCLEATED RED BLOOD CELLS 4 /100 WBC; PLATELET ESTIMATE NORMAL
[2017-12-17] MEDS ORDERED: GLYCOPYRROLATE 0.2 MG/ML 2ML VIAL ONE (12:44)
[2017-12-17] MEDS: FAMOTIDINE 20MG/2ML VIAL IV SCH (17:03)
[2017-12-18] VITALS (14 sets, daily range): BP systolic 110–157; BP diastolic 56–94
[2017-12-18] MEDS: IPRATROPIUM BROMIDE (0.02%) 0.5MG/2.5ML NEB HHN SCH ×4 (04:12→20:05)
[2017-12-18] MEDS: METOCLOPRAMIDE HCL 10MG/2ML VIAL IV SCH ×4 (05:54→23:02)
[2017-12-18] MEDS: METHYLPREDNISOLONE SOD SUCC 125 MG/2 ML VIAL IV SCH ×2 (07:57→15:38)
[2017-12-18] MEDS: CEFTRIAXONE 2 G in DEXTROSE 5% WATER 50 ML IV SCH (07:57)
[2017-12-18] MEDS: IPRATROPIUM/ALBUTEROL 0.5-3(2.5)MG/3ML NEB HHN PRN (09:00)
[2017-12-18] MEDS ORDERED: ENOXAPARIN 120MG/0.8ML SYR SUBCUT SCH (10:00)
[2017-12-18] MEDS ORDERED: MIDAZOLAM HCL 5 MG/5 ML VIAL ONE (10:02)
[2017-12-18] MEDS ORDERED: TETRACAINE/BENZOCAINE/BUTAMBEN 20 GM SPRAY MM ONE (10:03)
[2017-12-18] MEDS ORDERED: FENTANYL CITRATE/PF 50MCG/ML 2ML VIAL ONE (10:03)
[2017-12-18] MEDS ORDERED: LIDOCAINE HCL 2% JELLY 5ML ONE (10:03)
[2017-12-18 11:51] LABS: INR 1.3; PROTHROMBIN TIME 12.9 sec (9.1-11.1)
[2017-12-18] MEDS: FOLIC ACID/VITAMIN B COMP W-C TABLET NG SCH ×2 (13:14→13:20)
[2017-12-18] MEDS: AMLODIPINE 2.5MG TABLET PO SCH ×3 (13:14→20:57)
[2017-12-18] MEDS: GUAIFENESIN 600MG ER TABLET PO SCH ×2 (13:14→20:57)
[2017-12-18] MEDS: FAMOTIDINE 20MG/2ML VIAL IV SCH (17:29)
[2017-12-18] MEDS ORDERED: WARFARIN SODIUM 7.5MG TABLET PO SCH (18:00)
[2017-12-18] MEDS: EPOETIN ALFA 10000UNITS/ML VIAL SUBCUT SCH (20:57)
[2017-12-18] MEDS: METHYLPREDNISOLONE SOD SUCC 40 MG/ML VIAL IV SCH (23:02)
[2017-12-19] VITALS (18 sets, daily range): BP systolic 118–172; BP diastolic 72–98
[2017-12-19] MEDS ORDERED: ENOXAPARIN 120MG/0.8ML SYR SUBCUT SCH
[2017-12-19] MEDS: IPRATROPIUM BROMIDE (0.02%) 0.5MG/2.5ML NEB HHN SCH ×6 (00:20→20:23)
[2017-12-19 03:27] LABS: CLARITY URINE CLEAR (CLEAR); COLOR URINE YELLOW (YELLOW); KETONES URINE NEGATIVE (NEGATIVE); LEUKOCYTE ESTERASE URINE TRACE (NEGATIVE); NITRITE URINE NEGATIVE (NEGATIVE); OCCULT BLOOD URINE 3+ (NEGATIVE); PH URINE 5.5 (4.5-8.0); PROTEIN URINE 3+ (NEGATIVE); SPECIFIC GRAVITY URINE 1.016 (1.005-1.030); UROBILINOGEN URINE 0.2 E.U./dL (0.2-1.0)
[2017-12-19] MEDS: METHYLPREDNISOLONE SOD SUCC 40 MG/ML VIAL IV SCH ×3 (05:20→21:45)
[2017-12-19] MEDS: METOCLOPRAMIDE HCL 10MG/2ML VIAL IV SCH (05:20)
[2017-12-19 06:32] LABS: BASOPHILS % 0.1 % (0.0-2.0); HEMATOCRIT. 26.6 % (36.0-48.0); HEMOGLOBIN. 8.6 g/dL (12.0-16.0); LYMPHOCYTES % 10.5 % (20.0-50.0); MEAN CORPUSCULAR VOLUME 83.4 fL (81.0-99.0); MEAN PLATELET VOLUME 8.4 fl (7.4-10.4); MONOCYTES % 8.1 % (2.0-8.0); NEUTROPHILS % 81.3 % (40.0-76.0); PLATELET 208 x1000/uL (130-400); RED BLOOD CELL COUNT 3.19 mill/uL (4.2-5.4); RED CELL DISTRIBUTION WIDTH 17.8 % (11.6-14.6)
[2017-12-19 06:35] LABS: INR 1.3; PROTHROMBIN TIME 13.2 sec (9.1-11.1)
[2017-12-19 06:57] LABS: CHLORIDE 108 mEq/L (98-107)
[2017-12-19] MEDS ORDERED: VERAPAMIL HCL 2.5 MG/1 ML 2ML VIAL IV PRN (07:30)
[2017-12-19] MEDS: CHOLECALCIFEROL (D3) 1000 UNIT TABLET PO SCH (09:02)
[2017-12-19] MEDS: GUAIFENESIN 600MG ER TABLET PO SCH ×2 (09:02→21:45)
[2017-12-19] MEDS: AMLODIPINE 2.5MG TABLET PO SCH (09:02)
[2017-12-19] MEDS: FOLIC ACID/VITAMIN B COMP W-C TABLET NG SCH (09:02)
[2017-12-19] MEDS: CALCIUM CARBONATE 1250MG TABLET (500MG ELEMENTAL CALCIUM) PO SCH ×2 (09:02→18:15)
[2017-12-19] MEDS ORDERED: DIGOXIN 500MCG/2ML AMP IV SCH ×2 (10:15→13:00)
[2017-12-19] MEDS: DILTIAZEM HCL 60MG TABLET PO SCH ×3 (10:42→21:54)
[2017-12-19] MEDS: FAMOTIDINE 20MG/2ML VIAL IV SCH (18:15)
[2017-12-19 19:07] LABS: ANTI-CENTROMERE B ANTIBODIES < 0.2 AI (0.0-0.9); RNP ANTIBODY 0.2 AI (0.0-0.9); SMITH ANTIBODY < 0.2 AI (0.0-0.9)
[2017-12-19] MEDS: ZOLPIDEM TARTRATE 5MG TABLET PO PRN (21:45)
[2017-12-20] VITALS (12 sets, daily range): BP systolic 142–190; BP diastolic 72–97
[2017-12-20] MEDS: IPRATROPIUM BROMIDE (0.02%) 0.5MG/2.5ML NEB HHN SCH ×5 (04:39→20:59)
[2017-12-20] MEDS: METHYLPREDNISOLONE SOD SUCC 40 MG/ML VIAL IV SCH ×3 (05:52→21:16)
[2017-12-20] MEDS: DILTIAZEM HCL 60MG TABLET PO SCH (05:54)
[2017-12-20] MEDS: CALCIUM CARBONATE 1250MG TABLET (500MG ELEMENTAL CALCIUM) PO SCH ×2 (08:00→17:03)
[2017-12-20] MEDS: GUAIFENESIN 600MG ER TABLET PO SCH ×2 (08:01→21:09)
[2017-12-20] MEDS: AMLODIPINE 5MG TABLET PO SCH ×2 (08:01→21:09)
[2017-12-20] MEDS: CHOLECALCIFEROL (D3) 1000 UNIT TABLET PO SCH (08:01)
[2017-12-20] MEDS: FOLIC ACID/VITAMIN B COMP W-C TABLET NG SCH (08:01)
[2017-12-20] MEDS: ENOXAPARIN 120MG/0.8ML SYR SUBCUT SCH (08:02)
[2017-12-20 08:20] LABS: *CREATININE RANDOM URINE 55.6 mg/dL (Not Estab.); MICROALBUMIN RANDOM URINE 953.9 ug/mL (Not Estab.)
[2017-12-20 12:11] LABS: HEMATOCRIT. 26.4 % (36.0-48.0); HEMOGLOBIN. 8.7 g/dL (12.0-16.0); MEAN CORPUSCULAR VOLUME 82.2 fL (81.0-99.0); MEAN PLATELET VOLUME 8.7 fl (7.4-10.4); PLATELET 221 x1000/uL (130-400); RED BLOOD CELL COUNT 3.22 mill/uL (4.2-5.4); RED CELL DISTRIBUTION WIDTH 17.8 % (11.6-14.6)
[2017-12-20 13:11] LABS: ANA IFA Negative (.)
[2017-12-20 13:45] LABS: PLATELET ESTIMATE NORMAL
[2017-12-20] MEDS ORDERED: HYDRALAZINE HCL 50MG TABLET PO SCH (14:00)
[2017-12-20] MEDS: FAMOTIDINE 20MG/2ML VIAL IV SCH (17:03)
[2017-12-20] MEDS: LOSARTAN POTASSIUM 25 MG TABLET PO SCH (17:07)
[2017-12-20] MEDS: ZOLPIDEM TARTRATE 5MG TABLET PO PRN (21:09)
[2017-12-21] VITALS (12 sets, daily range): BP systolic 142–196; BP diastolic 54–96
[2017-12-21] MEDS: IPRATROPIUM BROMIDE (0.02%) 0.5MG/2.5ML NEB HHN SCH ×6 (00:55→21:23)
[2017-12-21] MEDS: METHYLPREDNISOLONE SOD SUCC 40 MG/ML VIAL IV SCH ×3 (05:14→21:04)
[2017-12-21 05:53] LABS: BASOPHILS % 0.1 % (0.0-2.0); HEMATOCRIT. 27.1 % (36.0-48.0); HEMOGLOBIN. 8.9 g/dL (12.0-16.0); LYMPHOCYTES % 8.2 % (20.0-50.0); MEAN CORPUSCULAR HEMOGLOBIN 27.2 pg (28.0-32.0); MEAN CORPUSCULAR VOLUME 82.4 fL (81.0-99.0); MEAN PLATELET VOLUME 8.7 fl (7.4-10.4); NEUTROPHILS % 86.7 % (40.0-76.0); PLATELET 246 x1000/uL (130-400); RED BLOOD CELL COUNT 3.29 mill/uL (4.2-5.4); RED CELL DISTRIBUTION WIDTH 18.1 % (11.6-14.6)
[2017-12-21 05:55] LABS: CHLORIDE 112 mEq/L (98-107)
[2017-12-21] MEDS: GUAIFENESIN 600MG ER TABLET PO SCH ×2 (08:04→21:04)
[2017-12-21] MEDS: FOLIC ACID/VITAMIN B COMP W-C TABLET NG SCH (08:04)
[2017-12-21] MEDS: CALCIUM CARBONATE 1250MG TABLET (500MG ELEMENTAL CALCIUM) PO SCH ×2 (08:04→18:23)
[2017-12-21] MEDS: AMLODIPINE 5MG TABLET PO SCH ×2 (08:04→16:31)
[2017-12-21] MEDS: ENOXAPARIN 120MG/0.8ML SYR SUBCUT SCH (08:05)
[2017-12-21] MEDS: LOSARTAN POTASSIUM 25 MG TABLET PO SCH ×2 (08:57→16:30)
[2017-12-21] MEDS ORDERED: ERGOCALCIFEROL 50000UNITS CAPSULE PO SCH (09:00)
[2017-12-21 09:09] LABS: B-2 GLYCOPROTEIN IGA < 9 (0-25); B-2 GLYCOPROTEIN IGG < 9 (0-20)
[2017-12-21 09:21] LABS: CLARITY URINE CLEAR (CLEAR); COLOR URINE YELLOW (YELLOW); PROTEIN URINE 2+ (NEGATIVE); SPECIFIC GRAVITY URINE 1.016 (1.005-1.030)
[2017-12-21 09:22] LABS: KETONES URINE NEGATIVE (NEGATIVE); LEUKOCYTE ESTERASE URINE 1+ (NEGATIVE); NITRITE URINE NEGATIVE (NEGATIVE); OCCULT BLOOD URINE 3+ (NEGATIVE); UROBILINOGEN URINE 0.2 E.U./dL (0.2-1.0)
[2017-12-21] MEDS ORDERED: ASPIRIN 81MG EC TABLET PO SCH (09:45)
[2017-12-21] MEDS ORDERED: CLOPIDOGREL 75MG TABLET PO SCH (09:45)
[2017-12-21] MEDS: FAMOTIDINE 20MG/2ML VIAL IV SCH (18:23)
[2017-12-21] MEDS ORDERED: LOSARTAN POTASSIUM 25 MG TABLET PO SCH (21:00)
[2017-12-22] VITALS (12 sets, daily range): BP systolic 109–159; BP diastolic 67–101
[2017-12-22] MEDS: IPRATROPIUM BROMIDE (0.02%) 0.5MG/2.5ML NEB HHN SCH ×5 (01:10→21:10)
[2017-12-22 06:40] LABS: HEMOGLOBIN. 9.1 g/dL (12.0-16.0); MEAN CORPUSCULAR HEMOGLOBIN 26.9 pg (28.0-32.0); MEAN CORPUSCULAR VOLUME 82.7 fL (81.0-99.0); MEAN PLATELET VOLUME 8.8 fl (7.4-10.4); PLATELET 212 x1000/uL (130-400); RED BLOOD CELL COUNT 3.39 mill/uL (4.2-5.4); RED CELL DISTRIBUTION WIDTH 17.9 % (11.6-14.6)
[2017-12-22] MEDS ORDERED: ENOXAPARIN 120MG/0.8ML SYR SUBCUT NR (07:00)
[2017-12-22] MEDS: METHYLPREDNISOLONE SOD SUCC 40 MG/ML VIAL IV SCH ×2 (07:03→21:49)
[2017-12-22] MEDS: LOSARTAN POTASSIUM 25 MG TABLET PO SCH ×2 (08:58→21:49)
[2017-12-22] MEDS: AMLODIPINE 5MG TABLET PO SCH ×2 (09:00→21:49)
[2017-12-22] MEDS: CALCIUM CARBONATE 1250MG TABLET (500MG ELEMENTAL CALCIUM) PO SCH ×2 (09:00→18:22)
[2017-12-22] MEDS: FOLIC ACID/VITAMIN B COMP W-C TABLET NG SCH (09:00)
[2017-12-22] MEDS: GUAIFENESIN 600MG ER TABLET PO SCH ×2 (09:00→21:49)
[2017-12-22] MEDS: DEXT 5%/0.45% NACL 1000ML 1,000 ML IV SCH (09:05)
[2017-12-22 12:55] LABS: NUCLEATED RED BLOOD CELLS 1 /100 WBC; PLATELET ESTIMATE NORMAL
[2017-12-22] MEDS: FAMOTIDINE 20MG/2ML VIAL IV SCH (18:23)
[2017-12-23] VITALS (17 sets, daily range): BP systolic 130–188; BP diastolic 76–95
[2017-12-23] MEDS: IPRATROPIUM BROMIDE (0.02%) 0.5MG/2.5ML NEB HHN SCH ×3 (01:06→13:22)
[2017-12-23] MEDS: DEXT 5%/0.45% NACL 1000ML 1,000 ML IV SCH ×2 (01:19→17:50)
[2017-12-23 06:53] LABS: HEMATOCRIT. 26.9 % (36.0-48.0); HEMOGLOBIN. 8.8 g/dL (12.0-16.0); MEAN CORPUSCULAR VOLUME 82.2 fL (81.0-99.0); MEAN PLATELET VOLUME 8.8 fl (7.4-10.4); PLATELET 212 x1000/uL (130-400); RED BLOOD CELL COUNT 3.27 mill/uL (4.2-5.4); RED CELL DISTRIBUTION WIDTH 18.3 % (11.6-14.6)
[2017-12-23] MEDS: CALCIUM CARBONATE 1250MG TABLET (500MG ELEMENTAL CALCIUM) PO SCH ×2 (08:16→17:00)
[2017-12-23] MEDS: LOSARTAN POTASSIUM 25 MG TABLET PO SCH (08:16)
[2017-12-23] MEDS: FOLIC ACID/VITAMIN B COMP W-C TABLET NG SCH (08:16)
[2017-12-23] MEDS: GUAIFENESIN 600MG ER TABLET PO SCH (08:16)
[2017-12-23] MEDS: METHYLPREDNISOLONE SOD SUCC 40 MG/ML VIAL IV SCH (08:17)
[2017-12-23] MEDS: AMLODIPINE 5MG TABLET PO SCH (08:17)
[2017-12-23] MEDS ORDERED: FENTANYL CITRATE/PF 50MCG/ML 2ML VIAL ONE (09:50)
[2017-12-23] MEDS ORDERED: LIDOCAINE HCL 1% 20ML VIAL (Pyxis) INJ ONE (10:35)
[2017-12-23] MEDS ORDERED: SODIUM BICARBONATE 4% (2.4MEQ) 5ML VIAL IV ONE (10:35)
[2017-12-23] MEDS ORDERED: FENTANYL CITRATE/PF 50MCG/ML 2ML VIAL IV SCH (11:00)
[2017-12-23 14:06] LABS: PLATELET ESTIMATE NORMAL
[2017-12-23 16:49] LABS: HEMATOCRIT 33.3 % (36.0-48.0); HEMOGLOBIN 10.9 g/dL (12.0-16.0)
[2017-12-23] MEDS: FAMOTIDINE 20MG/2ML VIAL IV SCH (18:00)
== END 2017-12-23 18:15 | disposition home health service (06) | DRG 870 ==
LOC: ER 09:04 → MICUSO 09:59 → EDBEDREQ 10:13 → ENRESERV 11:15 → 3WST 12-15 16:22
PROVIDERS: ADMIT Internal Medicine Nephrology; ATTEND Internal Medicine Nephrology
PROC: 5A1955Z Respiratory Ventilation, Greater than 96 Consecutive Hours (ICD-10-PCS; principal; 2017-12-06)
PROC: 0BH17EZ Insertion of Endotracheal Airway into Trachea, Via Natural or Artificial Opening (ICD-10-PCS; 2017-12-06)
PROC: 02HV33Z Insertion of Infusion Device into Superior Vena Cava, Percutaneous Approach (ICD-10-PCS; 2017-12-06)
PROC: B548ZZA Ultrasonography of Superior Vena Cava, Guidance (ICD-10-PCS; 2017-12-06)
PROC: 30243R1 Transfusion of Nonautologous Platelets into Central Vein, Percutaneous Approach (ICD-10-PCS; 2017-12-06)
PROC: 30243N1 Transfusion of Nonautologous Red Blood Cells into Central Vein, Percutaneous Approach (ICD-10-PCS; 2017-12-06)
PROC: 5A09357 Assistance with Respiratory Ventilation, Less than 24 Consecutive Hours, Continuous Positive Airway Pressure (ICD-10-PCS; 2017-12-06)
PROC: 5A1D70Z Performance of Urinary Filtration, Intermittent, Less than 6 Hours Per Day (ICD-10-PCS; 2017-12-07)
PROC: 4A00X4Z Measurement of Central Nervous Electrical Activity, External Approach (ICD-10-PCS; 2017-12-09)
PROC: 5A1D70Z Performance of Urinary Filtration, Intermittent, Less than 6 Hours Per Day (ICD-10-PCS; 2017-12-09)
PROC: 07DQ3ZX Extraction of Sternum Bone Marrow, Percutaneous Approach, Diagnostic (ICD-10-PCS; 2017-12-17)
PROC: B246ZZ4 Ultrasonography of Right and Left Heart, Transesophageal (ICD-10-PCS; 2017-12-18)
PROC: 0TB13ZX Excision of Left Kidney, Percutaneous Approach, Diagnostic (ICD-10-PCS; 2017-12-23)
DX: A41.9 Sepsis, unspecified organism (principal); E43 Unspecified severe protein-calorie malnutrition; I21.4 Non-ST elevation (NSTEMI) myocardial infarction; J96.01 Acute respiratory failure with hypoxia; R65.21 Severe sepsis with septic shock; N17.0 Acute kidney failure with tubular necrosis; J18.9 Pneumonia, unspecified organism; G82.50 Quadriplegia, unspecified; I63.9 Cerebral infarction, unspecified; G93.41 Metabolic encephalopathy; I16.1 Hypertensive emergency; Z68.42 Body mass index [BMI] 45.0-49.9, adult; D61.818 Other pancytopenia; D68.61 Antiphospholipid syndrome; I13.0 Hypertensive heart and chronic kidney disease with heart failure and stage 1 through stage 4 chronic kidney disease, or unspecified chronic kidney disease; I82.621 Acute embolism and thrombosis of deep veins of right upper extremity; N39.0 Urinary tract infection, site not specified; R47.01 Aphasia; Z99.11 Dependence on respirator [ventilator] status; I47.1 Supraventricular tachycardia; E87.4 Mixed disorder of acid-base balance; Z88.8 Allergy status to other drugs, medicaments and biological substances; D69.59 Other secondary thrombocytopenia; E66.01 Morbid (severe) obesity due to excess calories; E86.0 Dehydration; I25.2 Old myocardial infarction; I35.1 Nonrheumatic aortic (valve) insufficiency; I44.1 Atrioventricular block, second degree; I48.91 Unspecified atrial fibrillation; I50.9 Heart failure, unspecified; J32.3 Chronic sphenoidal sinusitis; J45.909 Unspecified asthma, uncomplicated; N18.9 Chronic kidney disease, unspecified; E55.9 Vitamin D deficiency, unspecified; E87.6 Hypokalemia; R13.10 Dysphagia, unspecified; R31.29 Other microscopic hematuria; Z78.1 Physical restraint status; Z79.01 Long term (current) use of anticoagulants; Z79.02 Long term (current) use of antithrombotics/antiplatelets; Z80.41 Family history of malignant neoplasm of ovary; Z86.73 Personal history of transient ischemic attack (TIA), and cerebral infarction without residual deficits; Z93.1 Gastrostomy status
CPT/HCPCS: 31500; 36415; 36569; 36600; 38220; 49180; 70544; 70551; 71045; 71046; 74176; 76937; 77012; 78580; 80048; 80061; 80076; 80202; 80305; 81025; 81400; 81403; 81407; 81479; 82043; 82140; 82270; 82306; 82375; 82550; 82570; 82607; 82728; 82746; 82784; 82805; 83010; 83036; 83520; 83540; 83550; 83605; 83615; 83735; 83880; 84100; 84145; 84439; 84443; 84478; 84481; 84484; 84703; 85014; 85018; 85044; 85060; 85097; 85300; 85303; 85306; 85379; 85613; 85651; 85732; 86038; 86140; 86146; 86147; 86160; 86225; 86235; 86256; 86334; 86747; 86850; 86900; 86920; 86945; 87070; 87076; 87077; 87106; 87186; 87389; 87804; 88305; 88313; 88346; 88348; 92523; 92610; 93005; 93306; 93312; 93880; 93970; 93971; 94003; 94640; 94644; 94660; 96374; 96375; 97110; 97116; 97163; 97166; 97530; 97535; 99291; A4216; A6261; C1752; C1769; C9113; J0330; J0692; J0696; J0885; J1160; J1650; J1940; J1956; J2060; J2250; J2270; J2370; J2543; J2704; J2765; J2920; J2930; J3010; J3370; J3475; J3480; J3490; J7030; J7040; J7050; J7060; J7070; J7611; J7620; P9016; P9034

== ENCOUNTER → 2017-12-31 | Outpatient (CLI) | payer BC ==
[~2017-12-31] MED LIST changes: -HYDR-4009 PO; -HYDR-4134 PO; -LOSA100T14 PO; -METO-396 PO
[2017-12-31 11:01] LABS: HEMATOCRIT. 32.7 % (36.0-48.0); HEMOGLOBIN. 10.7 g/dL (12.0-16.0); MEAN CORPUSCULAR HEMOGLOBIN 27.3 pg (28.0-32.0); MEAN CORPUSCULAR VOLUME 83.6 fL (81.0-99.0); MEAN PLATELET VOLUME 9.1 fl (7.4-10.4); PLATELET 137 x1000/uL (130-400); RED BLOOD CELL COUNT 3.91 mill/uL (4.2-5.4); RED CELL DISTRIBUTION WIDTH 22.1 % (11.6-14.6)
[2017-12-31 11:05] LABS: CLARITY URINE CLOUDY (CLEAR); COLOR URINE DARK YELLOW (YELLOW); KETONES URINE NEGATIVE (NEGATIVE); LEUKOCYTE ESTERASE URINE 2+ (NEGATIVE); NITRITE URINE NEGATIVE (NEGATIVE); OCCULT BLOOD URINE 3+ (NEGATIVE); PROTEIN URINE 3+ (NEGATIVE); SPECIFIC GRAVITY URINE 1.014 (1.005-1.030); UROBILINOGEN URINE 0.2 E.U./dL (0.2-1.0)
[2017-12-31 11:07] LABS: INR 1.1; PARTIAL THROMBOPLASTIN TIME 40.3 sec (23.4-31.0); PROTHROMBIN TIME 11.3 sec (9.1-11.1)
[2017-12-31 11:24] LABS: CHLORIDE 106 mEq/L (98-107)
[2017-12-31 12:44] LABS: PLATELET ESTIMATE NORMAL
== END | disposition home or self-care (01) ==
LOC: LAB 10:26
PROVIDERS: ATTEND Internal Medicine
DX: I77.6 Arteritis, unspecified (principal); D64.9 Anemia, unspecified
CPT/HCPCS: 36415

== ENCOUNTER 2018-01-01 08:24 | Day surgery (SDC) | payer BC ==
[2018-01-01] VITALS (9 sets, daily range): BP systolic 150–158; BP diastolic 91–97
[~2018-01-01] VITALS: Ht 160 cm; Wt 120.7 kg
[2018-01-01] MEDS ORDERED: LIDOCAINE HCL 1% 20ML VIAL (Pyxis) INJ ONE (09:18)
[2018-01-01] MEDS ORDERED: SODIUM BICARBONATE 4% (2.4MEQ) 5ML VIAL IV ONE (09:18)
[2018-01-01] MEDS ORDERED: MIDAZOLAM HCL 2 MG/2 ML VIAL ONE ×2 (09:49→10:58)
[2018-01-01] MEDS ORDERED: FENTANYL CITRATE/PF 50MCG/ML 2ML VIAL ONE (09:49)
[2018-01-01] MEDS ORDERED: FENTANYL CITRATE/PF 50MCG/ML 2ML VIAL IV ONE (10:00)
[2018-01-01 12:37] LABS: HEMATOCRIT 31.1 % (36.0-48.0); HEMOGLOBIN 10.3 g/dL (12.0-16.0)
== END 2018-01-01 14:00 | disposition home or self-care (01) ==
LOC: RAD 08:24
PROVIDERS: ATTEND Family Medicine
DX: I77.6 Arteritis, unspecified (principal); D64.9 Anemia, unspecified; I63.9 Cerebral infarction, unspecified; G82.50 Quadriplegia, unspecified; I25.2 Old myocardial infarction; I35.1 Nonrheumatic aortic (valve) insufficiency; I13.0 Hypertensive heart and chronic kidney disease with heart failure and stage 1 through stage 4 chronic kidney disease, or unspecified chronic kidney disease; J45.909 Unspecified asthma, uncomplicated; E11.22 Type 2 diabetes mellitus with diabetic chronic kidney disease; N18.9 Chronic kidney disease, unspecified; I50.9 Heart failure, unspecified; E66.01 Morbid (severe) obesity due to excess calories; Z79.899 Other long term (current) drug therapy; Z88.8 Allergy status to other drugs, medicaments and biological substances; Z86.73 Personal history of transient ischemic attack (TIA), and cerebral infarction without residual deficits; Z68.42 Body mass index [BMI] 45.0-49.9, adult; Z79.02 Long term (current) use of antithrombotics/antiplatelets; Z79.01 Long term (current) use of anticoagulants; Z99.11 Dependence on respirator [ventilator] status
CPT/HCPCS: 36415; 50200; 76942; 85014; 85018; 88305; 88346; 88348; J3010; J3490; J2250

== ENCOUNTER → 2018-01-10 | Outpatient (CLI) | payer BC ==
[2018-01-10 08:07] LABS: HEMATOCRIT 22.8 % (36.0-48.0); HEMOGLOBIN 7.7 g/dL (12.0-16.0)
== END | disposition home or self-care (01) ==
LOC: CT 07:39
PROVIDERS: ATTEND Internal Medicine
DX: S37.022A Major contusion of left kidney, initial encounter (principal); I51.7 Cardiomegaly; I31.3 Pericardial effusion (noninflammatory); N18.2 Chronic kidney disease, stage 2 (mild); D64.9 Anemia, unspecified; X58.XXXA Exposure to other specified factors, initial encounter; Y93.89 Activity, other specified; Y92.89 Other specified places as the place of occurrence of the external cause; Y99.8 Other external cause status
CPT/HCPCS: 36415; 74176; 80048; 80061; 83010; 83615; 85014; 85018; 85044

== ENCOUNTER → 2018-01-30 | Outpatient (CLI) | payer BC ==
[2018-01-30 10:40] LABS: BASOPHILS % 0.3 % (0.0-2.0); EOSINOPHILS % 0.2 % (0.0-5.0); HEMATOCRIT. 26.3 % (36.0-48.0); HEMOGLOBIN. 8.7 g/dL (12.0-16.0); MEAN CORPUSCULAR HEMOGLOBIN 29.3 pg (28.0-32.0); MEAN CORPUSCULAR VOLUME 88.4 fL (81.0-99.0); NEUTROPHILS % 80.5 % (40.0-76.0); PLATELET 136 x1000/uL (130-400); RED BLOOD CELL COUNT 2.98 mill/uL (4.2-5.4); RED CELL DISTRIBUTION WIDTH 22.8 % (11.6-14.6)
[2018-01-30 10:54] LABS: CLARITY URINE CLEAR (CLEAR); COLOR URINE YELLOW (YELLOW); KETONES URINE NEGATIVE (NEGATIVE); LEUKOCYTE ESTERASE URINE NEGATIVE (NEGATIVE); NITRITE URINE NEGATIVE (NEGATIVE); OCCULT BLOOD URINE 2+ (NEGATIVE); PH URINE 5.5 (4.5-8.0); PROTEIN URINE 3+ (NEGATIVE); SPECIFIC GRAVITY URINE 1.009 (1.005-1.030); UROBILINOGEN URINE 0.2 E.U./dL (0.2-1.0)
[2018-01-30 11:08] LABS: CHLORIDE 108 mEq/L (98-107)
[2018-01-30 15:00] LABS: PLATELET ESTIMATE NORMAL
== END | disposition home or self-care (01) ==
LOC: LAB 10:16
PROVIDERS: ATTEND Internal Medicine
DX: E78.5 Hyperlipidemia, unspecified (principal); D64.9 Anemia, unspecified
CPT/HCPCS: 36415; 86880

== ENCOUNTER → 2018-02-14 | Outpatient (CLI) | payer BC ==
[2018-02-14 09:47] LABS: CLARITY URINE CLEAR (CLEAR); COLOR URINE YELLOW (YELLOW); KETONES URINE NEGATIVE (NEGATIVE); LEUKOCYTE ESTERASE URINE NEGATIVE (NEGATIVE); NITRITE URINE NEGATIVE (NEGATIVE); OCCULT BLOOD URINE 1+ (NEGATIVE); PROTEIN URINE 3+ (NEGATIVE); SPECIFIC GRAVITY URINE 1.013 (1.005-1.030); UROBILINOGEN URINE 0.2 E.U./dL (0.2-1.0)
[2018-02-14 09:53] LABS: CHLORIDE 107 mEq/L (98-107)
[2018-02-14 09:54] LABS: BASOPHILS % 0.3 % (0.0-2.0); EOSINOPHILS % 0.6 % (0.0-5.0); HEMATOCRIT. 29.7 % (36.0-48.0); HEMOGLOBIN. 9.8 g/dL (12.0-16.0); MEAN CORPUSCULAR VOLUME 88.2 fL (81.0-99.0); MEAN PLATELET VOLUME 8.1 fl (7.4-10.4); MONOCYTES % 6.9 % (2.0-8.0); NEUTROPHILS % 72.2 % (40.0-76.0); PLATELET 297 x1000/uL (130-400); RED BLOOD CELL COUNT 3.37 mill/uL (4.2-5.4); RED CELL DISTRIBUTION WIDTH 19.8 % (11.6-14.6)
[2018-02-15 08:11] LABS: *CREATININE RANDOM URINE 75.6 mg/dL (Not Estab.); MICROALBUMIN RANDOM URINE 2238.1 ug/mL (Not Estab.)
== END | disposition home or self-care (01) ==
LOC: LAB 08:51
PROVIDERS: ATTEND Internal Medicine
DX: D64.9 Anemia, unspecified (principal); E78.5 Hyperlipidemia, unspecified; N28.9 Disorder of kidney and ureter, unspecified
CPT/HCPCS: 36415; 82043; 82570

== ENCOUNTER → 2018-03-03 | Outpatient (CLI) | payer BC ==
[2018-03-03 10:05] LABS: BASOPHILS % 0.7 % (0.0-2.0); EOSINOPHILS % 1.6 % (0.0-5.0); HEMOGLOBIN. 10.2 g/dL (12.0-16.0); LYMPHOCYTES % 24.9 % (20.0-50.0); MEAN CORPUSCULAR HEMOGLOBIN 28.9 pg (28.0-32.0); MEAN CORPUSCULAR VOLUME 88.1 fL (81.0-99.0); MEAN PLATELET VOLUME 8.3 fl (7.4-10.4); MONOCYTES % 9.5 % (2.0-8.0); NEUTROPHILS % 63.3 % (40.0-76.0); PLATELET 235 x1000/uL (130-400); RED BLOOD CELL COUNT 3.52 mill/uL (4.2-5.4); RED CELL DISTRIBUTION WIDTH 17.9 % (11.6-14.6)
[2018-03-03 10:09] LABS: CLARITY URINE CLEAR (CLEAR); COLOR URINE YELLOW (YELLOW); KETONES URINE NEGATIVE (NEGATIVE); LEUKOCYTE ESTERASE URINE NEGATIVE (NEGATIVE); NITRITE URINE NEGATIVE (NEGATIVE); OCCULT BLOOD URINE TRACE (NEGATIVE); PROTEIN URINE 2+ (NEGATIVE); SPECIFIC GRAVITY URINE 1.012 (1.005-1.030); UROBILINOGEN URINE 0.2 E.U./dL (0.2-1.0)
[2018-03-03 10:27] LABS: CHLORIDE 107 mEq/L (98-107)
[2018-03-06 04:17] LABS: *CREATININE RANDOM URINE 76.6 mg/dL (Not Estab.); MICROALBUMIN RANDOM URINE 920.6 ug/mL (Not Estab.)
[2018-03-06 10:10] LABS: ANTI-CARDIOLIPIN AB IGA < 9 APL U/mL (0-11); ANTI-CARDIOLIPIN AB IGG < 9 GPL U/mL (0-14); ANTI-CARDIOLIPIN AB IGM 32 MPL U/mL (0-12); B-2 GLYCOPROTEIN IGA < 9 (0-25); B-2 GLYCOPROTEIN IGG < 9 (0-20)
[2018-03-06 13:06] LABS: ANTI-MYELOPEROXIDASE AB < 9.0 U/mL (0.0-9.0); ANTI-PROTEINASE 3 ABS < 3.5 U/mL (0.0-3.5)
[2018-03-07 13:07] LABS: ATYPICAL P-ANCA <1:20 titer (Neg:<1:20); CYTOPLASMIC C-ANCA <1:20 titer (Neg:<1:20)
[2018-03-10 13:09] LABS: LUPUS ANTICOAG INTERPRETATION Comment: (.); PROTEIN C FUNCTIONAL 122 % (73-180); PTT-LA 31.2 sec (0.0-51.9)
== END | disposition home or self-care (01) ==
LOC: LAB 08:46
PROVIDERS: ATTEND Internal Medicine
DX: D64.9 Anemia, unspecified (principal); E78.5 Hyperlipidemia, unspecified; N28.9 Disorder of kidney and ureter, unspecified; E55.9 Vitamin D deficiency, unspecified
CPT/HCPCS: 36415; 82043; 82306; 82570; 83520; 85303; 85306; 85613; 85732; 86146; 86147; 86256

== ENCOUNTER → 2018-03-12 | Outpatient (CLI) | payer BC ==
[2018-03-12 09:56] LABS: BASOPHILS % 0.6 % (0.0-2.0); EOSINOPHILS % 1.2 % (0.0-5.0); HEMATOCRIT. 30.8 % (36.0-48.0); LYMPHOCYTES % 20.2 % (20.0-50.0); MEAN CORPUSCULAR HEMOGLOBIN 28.8 pg (28.0-32.0); MEAN CORPUSCULAR VOLUME 88.4 fL (81.0-99.0); MEAN PLATELET VOLUME 8.3 fl (7.4-10.4); MONOCYTES % 10.5 % (2.0-8.0); NEUTROPHILS % 67.5 % (40.0-76.0); PLATELET 193 x1000/uL (130-400); RED BLOOD CELL COUNT 3.48 mill/uL (4.2-5.4); RED CELL DISTRIBUTION WIDTH 17.6 % (11.6-14.6)
[2018-03-12 10:02] LABS: CLARITY URINE CLEAR (CLEAR); COLOR URINE YELLOW (YELLOW); KETONES URINE NEGATIVE (NEGATIVE); LEUKOCYTE ESTERASE URINE NEGATIVE (NEGATIVE); NITRITE URINE NEGATIVE (NEGATIVE); OCCULT BLOOD URINE 2+ (NEGATIVE); PROTEIN URINE 3+ (NEGATIVE); SPECIFIC GRAVITY URINE 1.014 (1.005-1.030); UROBILINOGEN URINE 0.2 E.U./dL (0.2-1.0)
[2018-03-12 10:05] LABS: INR 1.1; PARTIAL THROMBOPLASTIN TIME 38.6 sec (23.4-31.0); PROTHROMBIN TIME 10.7 sec (9.1-11.1)
== END | disposition home or self-care (01) ==
LOC: LAB 09:30
PROVIDERS: ATTEND Internal Medicine
DX: D68.61 Antiphospholipid syndrome (principal)
CPT/HCPCS: 36415; 80048; 85651; 86140; 86235

== ENCOUNTER → 2018-03-14 | Outpatient (CLI) | payer BC ==
[2018-03-14 09:57] LABS: CLARITY URINE CLEAR (CLEAR); COLOR URINE YELLOW (YELLOW); KETONES URINE NEGATIVE (NEGATIVE); LEUKOCYTE ESTERASE URINE NEGATIVE (NEGATIVE); NITRITE URINE NEGATIVE (NEGATIVE); OCCULT BLOOD URINE 2+ (NEGATIVE); PROTEIN URINE 3+ (NEGATIVE); SPECIFIC GRAVITY URINE 1.014 (1.005-1.030); UROBILINOGEN URINE 0.2 E.U./dL (0.2-1.0)
[2018-03-14 10:01] LABS: BASOPHILS % 0.7 % (0.0-2.0); EOSINOPHILS % 1.6 % (0.0-5.0); HEMOGLOBIN. 10.7 g/dL (12.0-16.0); MEAN CORPUSCULAR HEMOGLOBIN 28.7 pg (28.0-32.0); MEAN CORPUSCULAR VOLUME 88.7 fL (81.0-99.0); MEAN PLATELET VOLUME 8.6 fl (7.4-10.4); MONOCYTES % 10.4 % (2.0-8.0); NEUTROPHILS % 61.3 % (40.0-76.0); PLATELET 184 x1000/uL (130-400); RED BLOOD CELL COUNT 3.72 mill/uL (4.2-5.4); RED CELL DISTRIBUTION WIDTH 17.8 % (11.6-14.6)
[2018-03-14 10:04] LABS: INR 1.2; PROTHROMBIN TIME 11.9 sec (9.1-11.1)
[2018-03-14 10:06] LABS: CHLORIDE 109 mEq/L (98-107)
[2018-03-14 10:12] LABS: C REACTIVE PROTEIN QUANT 8.3 mg/L (0.0-3.0)
== END | disposition home or self-care (01) ==
LOC: LAB 09:09
PROVIDERS: ATTEND Internal Medicine
DX: D68.61 Antiphospholipid syndrome (principal)
CPT/HCPCS: 36415; 85651; 86140

== ENCOUNTER → 2018-03-17 | Outpatient (CLI) | payer BC ==
[2018-03-17 11:04] LABS: INR 1.7; PROTHROMBIN TIME 17.3 sec (9.1-11.1)
== END | disposition home or self-care (01) ==
LOC: LAB 10:16
PROVIDERS: ATTEND Internal Medicine
DX: D68.61 Antiphospholipid syndrome (principal)
CPT/HCPCS: 36415

== ENCOUNTER → 2018-03-19 | Outpatient (CLI) | payer BC ==
[2018-03-19 14:18] LABS: INR 1.4; PROTHROMBIN TIME 13.8 sec (9.1-11.1)
== END | disposition home or self-care (01) ==
LOC: LAB 10:10
PROVIDERS: ATTEND Internal Medicine
DX: I12.9 Hypertensive chronic kidney disease with stage 1 through stage 4 chronic kidney disease, or unspecified chronic kidney disease (principal); N18.3 Chronic kidney disease, stage 3 (moderate); D68.61 Antiphospholipid syndrome
CPT/HCPCS: 36415; 80048

== ENCOUNTER → 2018-03-24 | Outpatient (CLI) | payer BC ==
[2018-03-24 11:12] LABS: INR 1.8; PROTHROMBIN TIME 17.8 sec (9.1-11.1)
== END | disposition home or self-care (01) ==
LOC: LAB 09:44
PROVIDERS: ATTEND Internal Medicine
DX: N18.3 Chronic kidney disease, stage 3 (moderate) (principal); D68.61 Antiphospholipid syndrome
CPT/HCPCS: 36415; 82570; 84156

== ENCOUNTER → 2018-03-27 | Outpatient (CLI) | payer BC ==
[2018-03-27 11:07] LABS: INR 1.9; PROTHROMBIN TIME 18.7 sec (9.1-11.1)
== END | disposition home or self-care (01) ==
LOC: LAB 10:22
PROVIDERS: ATTEND Internal Medicine
DX: I12.9 Hypertensive chronic kidney disease with stage 1 through stage 4 chronic kidney disease, or unspecified chronic kidney disease (principal); N18.3 Chronic kidney disease, stage 3 (moderate); D68.61 Antiphospholipid syndrome
CPT/HCPCS: 36415; 80048

== ENCOUNTER → 2018-03-31 | Outpatient (CLI) | payer BC ==
[2018-03-31 10:27] LABS: BASOPHILS % 0.4 % (0.0-2.0); EOSINOPHILS % 1.6 % (0.0-5.0); HEMATOCRIT. 31.9 % (36.0-48.0); HEMOGLOBIN. 10.3 g/dL (12.0-16.0); LYMPHOCYTES % 21.7 % (20.0-50.0); MEAN CORPUSCULAR HEMOGLOBIN 28.7 pg (28.0-32.0); MEAN CORPUSCULAR VOLUME 88.6 fL (81.0-99.0); MEAN PLATELET VOLUME 8.8 fl (7.4-10.4); MONOCYTES % 9.7 % (2.0-8.0); NEUTROPHILS % 66.6 % (40.0-76.0); PLATELET 235 x1000/uL (130-400); RED CELL DISTRIBUTION WIDTH 16.3 % (11.6-14.6)
[2018-03-31 10:31] LABS: INR 2.2; PROTHROMBIN TIME 21.4 sec (9.1-11.1)
== END | disposition home or self-care (01) ==
LOC: LAB 10:02
PROVIDERS: ATTEND Internal Medicine
DX: I12.9 Hypertensive chronic kidney disease with stage 1 through stage 4 chronic kidney disease, or unspecified chronic kidney disease (principal); N18.3 Chronic kidney disease, stage 3 (moderate); D68.61 Antiphospholipid syndrome
CPT/HCPCS: 36415

== ENCOUNTER → 2018-04-03 | Outpatient (CLI) | payer BC ==
[2018-04-03 14:16] LABS: PROTHROMBIN TIME 19.4 sec (9.1-11.1)
== END | disposition home or self-care (01) ==
LOC: LAB 13:40
PROVIDERS: ATTEND Internal Medicine
DX: D68.61 Antiphospholipid syndrome (principal)
CPT/HCPCS: 36415

== ENCOUNTER → 2018-04-10 | Outpatient (CLI) | payer BC ==
[2018-04-10 09:35] LABS: HEMATOCRIT 32.3 % (36.0-48.0); HEMOGLOBIN 10.5 g/dL (12.0-16.0); MEAN CORPUSCULAR HEMOGLOBIN 28.8 pg (28.0-32.0); MEAN CORPUSCULAR VOLUME 88.2 fL (81.0-99.0); PLATELET 236 x1000/uL (130-400); RED BLOOD CELL COUNT 3.66 mill/uL (4.2-5.4); RED CELL DISTRIBUTION WIDTH 16.1 % (11.6-14.6)
[2018-04-10 10:04] LABS: INR 3.9; PROTHROMBIN TIME 38.6 sec (9.1-11.1)
== END | disposition home or self-care (01) ==
LOC: LAB 08:49
PROVIDERS: ATTEND Internal Medicine
DX: Z79.01 Long term (current) use of anticoagulants (principal)
CPT/HCPCS: 36415; 85027

== ENCOUNTER → 2018-04-14 | Outpatient (CLI) | payer BC ==
[2018-04-14 09:55] LABS: HEMATOCRIT 33.6 % (36.0-48.0); HEMOGLOBIN 10.9 g/dL (12.0-16.0)
[2018-04-14 10:14] LABS: INR 1.6; PROTHROMBIN TIME 15.5 sec (9.1-11.1)
== END | disposition home or self-care (01) ==
LOC: LAB 09:24
PROVIDERS: ATTEND Internal Medicine
DX: Z79.01 Long term (current) use of anticoagulants (principal)
CPT/HCPCS: 36415; 85014; 85018

== ENCOUNTER → 2018-04-18 | Outpatient (CLI) | payer BC ==
[2018-04-18 09:02] LABS: BASOPHILS % 0.7 % (0.0-2.0); EOSINOPHILS % 1.6 % (0.0-5.0); HEMATOCRIT. 31.1 % (36.0-48.0); HEMOGLOBIN. 10.1 g/dL (12.0-16.0); LYMPHOCYTES % 25.6 % (20.0-50.0); MEAN CORPUSCULAR HEMOGLOBIN 28.6 pg (28.0-32.0); MEAN CORPUSCULAR VOLUME 87.8 fL (81.0-99.0); MEAN PLATELET VOLUME 8.9 fl (7.4-10.4); MONOCYTES % 10.9 % (2.0-8.0); NEUTROPHILS % 61.2 % (40.0-76.0); PLATELET 211 x1000/uL (130-400); RED BLOOD CELL COUNT 3.55 mill/uL (4.2-5.4); RED CELL DISTRIBUTION WIDTH 15.9 % (11.6-14.6)
[2018-04-18 09:10] LABS: INR 1.6; PROTHROMBIN TIME 15.8 sec (9.1-11.1)
== END | disposition home or self-care (01) ==
LOC: LAB 08:09
PROVIDERS: ATTEND Internal Medicine
DX: D68.61 Antiphospholipid syndrome (principal); Z79.01 Long term (current) use of anticoagulants
CPT/HCPCS: 36415; 80048

== ENCOUNTER → 2018-04-24 | Outpatient (CLI) | payer BC ==
[2018-04-24 11:28] LABS: INR 1.5
== END | disposition home or self-care (01) ==
LOC: LAB 10:44
PROVIDERS: ATTEND Internal Medicine
DX: Z79.01 Long term (current) use of anticoagulants (principal)
CPT/HCPCS: 36415

== ENCOUNTER → 2018-04-30 | Outpatient (CLI) | payer BC ==
[2018-04-30 11:28] LABS: BASOPHILS % 0.8 % (0.0-2.0); EOSINOPHILS % 1.3 % (0.0-5.0); HEMOGLOBIN. 10.3 g/dL (12.0-16.0); LYMPHOCYTES % 17.1 % (20.0-50.0); MEAN CORPUSCULAR HEMOGLOBIN 28.2 pg (28.0-32.0); MEAN CORPUSCULAR VOLUME 87.3 fL (81.0-99.0); MONOCYTES % 10.1 % (2.0-8.0); NEUTROPHILS % 70.7 % (40.0-76.0); RED BLOOD CELL COUNT 3.66 mill/uL (4.2-5.4); RED CELL DISTRIBUTION WIDTH 16.1 % (11.6-14.6)
[2018-04-30 11:32] LABS: CLARITY URINE CLEAR (CLEAR); COLOR URINE YELLOW (YELLOW); KETONES URINE NEGATIVE (NEGATIVE); LEUKOCYTE ESTERASE URINE 1+ (NEGATIVE); NITRITE URINE NEGATIVE (NEGATIVE); OCCULT BLOOD URINE 1+ (NEGATIVE); PH URINE 5.5 (4.5-8.0); PROTEIN URINE 3+ (NEGATIVE); SPECIFIC GRAVITY URINE 1.017 (1.005-1.030); UROBILINOGEN URINE 0.2 E.U./dL (0.2-1.0)
[2018-04-30 11:35] LABS: CHLORIDE 108 mEq/L (98-107); INR 2.4; PROTHROMBIN TIME 23.4 sec (9.1-11.1)
[2018-05-01 13:06] LABS: MICROALBUMIN RANDOM URINE 1235.4 ug/mL (Not Estab.)
== END | disposition home or self-care (01) ==
LOC: LAB 10:48
PROVIDERS: ATTEND Internal Medicine
DX: D68.61 Antiphospholipid syndrome (principal); Z79.01 Long term (current) use of anticoagulants
CPT/HCPCS: 36415; 82043; 82570

== ENCOUNTER → 2018-05-05 | Outpatient (CLI) | payer BC ==
[2018-05-05 11:37] LABS: INR 2.8; PARTIAL THROMBOPLASTIN TIME 44.2 sec (23.4-31.0); PROTHROMBIN TIME 28.1 sec (9.1-11.1)
== END | disposition home or self-care (01) ==
LOC: LAB 11:01 → EDSTATUS 11:27
PROVIDERS: ATTEND Internal Medicine
DX: Z79.01 Long term (current) use of anticoagulants (principal)
CPT/HCPCS: 36415

== ENCOUNTER → 2018-05-12 | Outpatient (CLI) | payer BC ==
[2018-05-12 12:10] LABS: INR 1.7
== END | disposition home or self-care (01) ==
LOC: LAB 11:26
PROVIDERS: ATTEND Internal Medicine
DX: Z79.01 Long term (current) use of anticoagulants (principal)
CPT/HCPCS: 36415

== ENCOUNTER → 2018-05-19 | Outpatient (CLI) | payer BC ==
[2018-05-19 11:20] LABS: BASOPHILS % 0.5 % (0.0-2.0); EOSINOPHILS % 1.6 % (0.0-5.0); HEMATOCRIT. 33.3 % (36.0-48.0); HEMOGLOBIN. 10.9 g/dL (12.0-16.0); LYMPHOCYTES % 23.4 % (20.0-50.0); MEAN CORPUSCULAR VOLUME 85.5 fL (81.0-99.0); MEAN PLATELET VOLUME 9.4 fl (7.4-10.4); MONOCYTES % 11.3 % (2.0-8.0); NEUTROPHILS % 63.2 % (40.0-76.0); PLATELET 174 x1000/uL (130-400); RED BLOOD CELL COUNT 3.89 mill/uL (4.2-5.4); RED CELL DISTRIBUTION WIDTH 16.4 % (11.6-14.6)
[2018-05-19 11:31] LABS: INR 2.9; PROTHROMBIN TIME 28.6 sec (9.1-11.1)
[2018-05-19 11:34] LABS: CHLORIDE 107 mEq/L (98-107)
[2018-05-19 11:41] LABS: CLARITY URINE CLEAR (CLEAR); COLOR URINE YELLOW (YELLOW); KETONES URINE NEGATIVE (NEGATIVE); LEUKOCYTE ESTERASE URINE TRACE (NEGATIVE); NITRITE URINE NEGATIVE (NEGATIVE); OCCULT BLOOD URINE 1+ (NEGATIVE); PH URINE 6.5 (4.5-8.0); PROTEIN URINE 2+ (NEGATIVE); SPECIFIC GRAVITY URINE 1.013 (1.005-1.030); UROBILINOGEN URINE 0.2 E.U./dL (0.2-1.0)
[2018-05-20 13:59] LABS: *CREATININE RANDOM URINE 60.9 mg/dL (Not Estab.); MICROALBUMIN RANDOM URINE 792.7 ug/mL (Not Estab.)
== END | disposition home or self-care (01) ==
LOC: LAB 10:43
PROVIDERS: ATTEND Internal Medicine
DX: D68.9 Coagulation defect, unspecified (principal); Z79.01 Long term (current) use of anticoagulants
CPT/HCPCS: 36415; 82043; 82570

== ENCOUNTER → 2018-05-26 | Outpatient (CLI) | payer BC ==
[2018-05-26 10:35] LABS: INR 2.8; PROTHROMBIN TIME 28.1 sec (9.1-11.1)
== END | disposition home or self-care (01) ==
LOC: LAB 10:03
PROVIDERS: ATTEND Internal Medicine
DX: Z79.01 Long term (current) use of anticoagulants (principal)
CPT/HCPCS: 36415

== ENCOUNTER → 2018-06-04 | Outpatient (CLI) | payer BC ==
[2018-06-04 09:17] LABS: INR 2.2; PROTHROMBIN TIME 22.1 sec (9.6-11.0)
== END | disposition home or self-care (01) ==
LOC: LAB 08:49
PROVIDERS: ATTEND Internal Medicine
DX: Z79.01 Long term (current) use of anticoagulants (principal)
CPT/HCPCS: 36415

== ENCOUNTER → 2018-06-11 | Outpatient (CLI) | payer BC ==
[2018-06-11 09:18] LABS: INR 1.8; PROTHROMBIN TIME 18.2 sec (9.6-11.0)
== END | disposition home or self-care (01) ==
LOC: LAB 08:50
PROVIDERS: ATTEND Internal Medicine
DX: Z79.01 Long term (current) use of anticoagulants (principal)
CPT/HCPCS: 36415

== ENCOUNTER → 2018-06-18 | Outpatient (CLI) | payer BC ==
[2018-06-18 09:49] LABS: INR 2.4; PROTHROMBIN TIME 23.7 sec (9.6-11.0)
== END | disposition home or self-care (01) ==
LOC: LAB 08:56
PROVIDERS: ATTEND Internal Medicine
DX: Z79.01 Long term (current) use of anticoagulants (principal)
CPT/HCPCS: 36415

== ENCOUNTER → 2018-06-25 | Outpatient (CLI) | payer BC ==
[2018-06-25 09:00] LABS: INR 1.8; PROTHROMBIN TIME 18.1 sec (9.6-11.0)
== END | disposition home or self-care (01) ==
LOC: LAB 08:27
PROVIDERS: ATTEND Internal Medicine
DX: Z79.01 Long term (current) use of anticoagulants (principal)
CPT/HCPCS: 36415

== ENCOUNTER → 2018-07-02 | Outpatient (CLI) | payer BC ==
[2018-07-02 09:27] LABS: INR 2.4; PROTHROMBIN TIME 23.8 sec (9.6-11.0)
== END | disposition home or self-care (01) ==
LOC: LAB 08:38
PROVIDERS: ATTEND Internal Medicine
DX: Z79.01 Long term (current) use of anticoagulants (principal)
CPT/HCPCS: 36415

== ENCOUNTER → 2018-07-09 | Outpatient (CLI) | payer BC ==
[2018-07-09 08:59] LABS: INR 2.7; PROTHROMBIN TIME 27.2 sec (9.6-11.0)
== END | disposition home or self-care (01) ==
LOC: LAB 08:00
PROVIDERS: ATTEND Internal Medicine
DX: Z79.01 Long term (current) use of anticoagulants (principal)
CPT/HCPCS: 36415

== ENCOUNTER → 2018-07-16 | Outpatient (CLI) | payer BC ==
[2018-07-16 09:27] LABS: BASOPHILS % 0.5 % (0.0-2.0); EOSINOPHILS % 4.9 % (0.0-5.0); HEMATOCRIT. 33.6 % (36.0-48.0); HEMOGLOBIN. 10.9 g/dL (12.0-16.0); LYMPHOCYTES % 29.4 % (20.0-50.0); MEAN CORPUSCULAR VOLUME 86.2 fL (81.0-99.0); MEAN PLATELET VOLUME 9.1 fl (7.4-10.4); MONOCYTES % 11.5 % (2.0-8.0); NEUTROPHILS % 53.7 % (40.0-76.0); PLATELET 163 x1000/uL (130-400); RED BLOOD CELL COUNT 3.91 mill/uL (4.2-5.4); RED CELL DISTRIBUTION WIDTH 17.2 % (11.6-14.6)
[2018-07-16 09:29] LABS: CLARITY URINE CLEAR (CLEAR); COLOR URINE YELLOW (YELLOW); KETONES URINE NEGATIVE (NEGATIVE); LEUKOCYTE ESTERASE URINE 2+ (NEGATIVE); NITRITE URINE NEGATIVE (NEGATIVE); OCCULT BLOOD URINE NEGATIVE (NEGATIVE); PH URINE 5.5 (4.5-8.0); PROTEIN URINE 2+ (NEGATIVE); SPECIFIC GRAVITY URINE 1.014 (1.005-1.030); UROBILINOGEN URINE 0.2 E.U./dL (0.2-1.0)
[2018-07-16 09:44] LABS: INR 2.5; PROTHROMBIN TIME 24.4 sec (9.6-11.0)
[2018-07-16 09:47] LABS: CHLORIDE 108 mEq/L (98-107)
[2018-07-16 09:53] LABS: C REACTIVE PROTEIN QUANT 3.6 mg/L (0.0-3.0)
[2018-07-16 09:54] LABS: LDL CHOLESTEROL 60 mg/dL (5-100)
[2018-07-16 09:56] LABS: HDL CHOLESTEROL 84 mg/dL (40-59)
[2018-07-17 08:14] LABS: *CREATININE RANDOM URINE 58.6 mg/dL (Not Estab.); MICROALBUMIN RANDOM URINE 769.5 ug/mL (Not Estab.)
== END | disposition home or self-care (01) ==
LOC: LAB 09:00
PROVIDERS: ATTEND Internal Medicine
DX: E55.9 Vitamin D deficiency, unspecified (principal); D68.61 Antiphospholipid syndrome; Z79.01 Long term (current) use of anticoagulants
CPT/HCPCS: 36415; 80061; 82043; 82306; 82570; 83036; 85651; 86140

== ENCOUNTER → 2018-07-29 | Outpatient (CLI) | payer BC ==
[2018-07-29 09:48] LABS: INR 1.9; PROTHROMBIN TIME 18.7 sec (9.6-11.0)
== END | disposition home or self-care (01) ==
LOC: LAB 09:23
PROVIDERS: ATTEND Internal Medicine
DX: Z79.01 Long term (current) use of anticoagulants (principal)
CPT/HCPCS: 36415

== ENCOUNTER 2018-08-04 17:10 | Emergency (ER) | payer BC ==
[~2018-08-04] VITALS: Ht 160 cm; Wt 114.0 kg
[2018-08-04] MEDS ORDERED: METHYLPREDNISOLONE SOD SUCC 125 MG/2 ML VIAL IV ONE (18:00)
[2018-08-04] MEDS ORDERED: DIPHENHYDRAMINE 50MG/ML VIAL IV ONE (18:00)
[2018-08-04] MEDS ORDERED: FAMOTIDINE 20MG/2ML VIAL IV SCH (18:00)
[2018-08-04 21:50] VITALS: BP 140/71
== END 2018-08-04 19:00 | disposition home or self-care (01) ==
LOC: ER 17:10
DX: T78.3XXA Angioneurotic edema, initial encounter (principal); X58.XXXA Exposure to other specified factors, initial encounter; Y93.89 Activity, other specified; Y92.89 Other specified places as the place of occurrence of the external cause
CPT/HCPCS: 96374; 96375; 99283; J1200; J2930; J3490

== ENCOUNTER → 2018-08-19 | Outpatient (CLI) | payer BC ==
[2018-08-19 09:28] LABS: INR 1.3; PROTHROMBIN TIME 13.7 sec (9.6-11.0)
== END | disposition home or self-care (01) ==
LOC: LAB 09:05
PROVIDERS: ATTEND Internal Medicine
DX: Z79.01 Long term (current) use of anticoagulants (principal)
CPT/HCPCS: 36415

== ENCOUNTER → 2018-08-26 | Outpatient (CLI) | payer BC ==
[2018-08-26 09:27] LABS: BASOPHILS % 0.3 % (0.0-2.0); EOSINOPHILS % 2.4 % (0.0-5.0); HEMATOCRIT. 33.5 % (36.0-48.0); HEMOGLOBIN. 11.1 g/dL (12.0-16.0); LYMPHOCYTES % 18.2 % (20.0-50.0); MEAN CORPUSCULAR HEMOGLOBIN 28.9 pg (28.0-32.0); MEAN CORPUSCULAR VOLUME 87.3 fL (81.0-99.0); MONOCYTES % 6.9 % (2.0-8.0); NEUTROPHILS % 72.2 % (40.0-76.0); PLATELET 166 x1000/uL (130-400); RED BLOOD CELL COUNT 3.84 mill/uL (4.2-5.4); RED CELL DISTRIBUTION WIDTH 16.8 % (11.6-14.6)
[2018-08-26 09:27] LABS: CLARITY URINE CLEAR (CLEAR); COLOR URINE YELLOW (YELLOW); KETONES URINE NEGATIVE (NEGATIVE); LEUKOCYTE ESTERASE URINE NEGATIVE (NEGATIVE); NITRITE URINE NEGATIVE (NEGATIVE); OCCULT BLOOD URINE NEGATIVE (NEGATIVE); PROTEIN URINE TRACE (NEGATIVE); SPECIFIC GRAVITY URINE 1.009 (1.005-1.030); UROBILINOGEN URINE 0.2 E.U./dL (0.2-1.0)
[2018-08-26 09:40] LABS: CHLORIDE 108 mEq/L (98-107)
[2018-08-26 09:43] LABS: INR 3.1; PROTHROMBIN TIME 30.5 sec (9.6-11.0)
[2018-08-27 08:23] LABS: *CREATININE RANDOM URINE 29.5 mg/dL (Not Estab.); MICROALBUMIN RANDOM URINE 148.2 ug/mL (Not Estab.)
== END | disposition home or self-care (01) ==
LOC: LAB 08:34
PROVIDERS: ATTEND Pathology Anatomic Pathology & Clinical Pathology
DX: D68.61 Antiphospholipid syndrome (principal); Z79.01 Long term (current) use of anticoagulants
CPT/HCPCS: 36415; 82043; 82570

== ENCOUNTER → 2018-09-02 | Outpatient (CLI) | payer BC ==
[2018-09-02 12:30] LABS: INR 1.6; PROTHROMBIN TIME 16.2 sec (9.6-11.0)
== END | disposition home or self-care (01) ==
LOC: LAB 11:46
PROVIDERS: ATTEND Internal Medicine
DX: Z79.01 Long term (current) use of anticoagulants (principal)
CPT/HCPCS: 36415

== ENCOUNTER → 2018-09-11 | Outpatient (CLI) | payer BC ==
[2018-09-11 11:16] LABS: PROTHROMBIN TIME 19.6 sec (9.6-11.0)
== END | disposition home or self-care (01) ==
LOC: LAB 10:09
PROVIDERS: ATTEND Internal Medicine
DX: Z79.01 Long term (current) use of anticoagulants (principal)
CPT/HCPCS: 36415

== ENCOUNTER → 2018-09-24 | Outpatient (CLI) | payer BC ==
[2018-09-24 08:31] LABS: PROTHROMBIN TIME 20.1 sec (9.6-11.0)
== END | disposition home or self-care (01) ==
LOC: LAB 08:06
PROVIDERS: ATTEND Internal Medicine
DX: Z79.01 Long term (current) use of anticoagulants (principal)
CPT/HCPCS: 36415

== ENCOUNTER → 2018-10-14 | Outpatient (CLI) | payer BC ==
[2018-10-14 09:35] LABS: CHLORIDE 110 mEq/L (98-107)
[2018-10-14 09:37] LABS: INR 1.6; PROTHROMBIN TIME 16.5 sec (9.6-11.0)
[2018-10-14 09:39] LABS: BASOPHILS % 0.3 % (0.0-2.0); EOSINOPHILS % 1.8 % (0.0-5.0); HEMATOCRIT. 34.3 % (36.0-48.0); HEMOGLOBIN. 11.4 g/dL (12.0-16.0); LYMPHOCYTES % 17.3 % (20.0-50.0); MEAN CORPUSCULAR HEMOGLOBIN 29.3 pg (28.0-32.0); MEAN CORPUSCULAR VOLUME 87.9 fL (81.0-99.0); MEAN PLATELET VOLUME 9.2 fl (7.4-10.4); MONOCYTES % 7.8 % (2.0-8.0); NEUTROPHILS % 72.8 % (40.0-76.0); PLATELET 209 x1000/uL (130-400); RED CELL DISTRIBUTION WIDTH 16.1 % (11.6-14.6)
[2018-10-14 16:34] LABS: CLARITY URINE CLOUDY (CLEAR); COLOR URINE YELLOW (YELLOW); KETONES URINE NEGATIVE (NEGATIVE); LEUKOCYTE ESTERASE URINE NEGATIVE (NEGATIVE); NITRITE URINE NEGATIVE (NEGATIVE); OCCULT BLOOD URINE NEGATIVE (NEGATIVE); PH URINE 5.5 (4.5-8.0); PROTEIN URINE 2+ (NEGATIVE); SPECIFIC GRAVITY URINE 1.016 (1.005-1.030); UROBILINOGEN URINE 0.2 E.U./dL (0.2-1.0)
[2018-10-16 10:06] LABS: *CREATININE RANDOM URINE 93.1 mg/dL (Not Estab.); MICROALBUMIN RANDOM URINE 817.6 ug/mL (Not Estab.)
== END | disposition home or self-care (01) ==
LOC: LAB 08:37
PROVIDERS: ATTEND Internal Medicine
DX: D68.61 Antiphospholipid syndrome (principal); Z79.01 Long term (current) use of anticoagulants
CPT/HCPCS: 36415; 81003; 82043; 82570

== ENCOUNTER → 2018-10-23 | Outpatient (CLI) | payer BC ==
[2018-10-23 09:12] LABS: INR 1.5; PROTHROMBIN TIME 14.8 sec (9.6-11.0)
== END | disposition home or self-care (01) ==
LOC: LAB 08:43
PROVIDERS: ATTEND Internal Medicine
DX: Z79.01 Long term (current) use of anticoagulants (principal)
CPT/HCPCS: 36415

== ENCOUNTER → 2018-10-30 | Outpatient (CLI) | payer BC ==
[2018-10-30 09:32] LABS: INR 1.5
== END | disposition home or self-care (01) ==
LOC: LAB 08:50
PROVIDERS: ATTEND Internal Medicine
DX: Z79.01 Long term (current) use of anticoagulants (principal)
CPT/HCPCS: 36415

== ENCOUNTER → 2018-11-07 | Outpatient (CLI) | payer BC ==
[2018-11-07 16:11] LABS: INR 2.8; PROTHROMBIN TIME 27.4 sec (9.6-11.0)
== END | disposition home or self-care (01) ==
LOC: LAB 15:34
PROVIDERS: ATTEND Internal Medicine
DX: Z79.01 Long term (current) use of anticoagulants (principal)
CPT/HCPCS: 36415

== ENCOUNTER → 2018-11-13 | Outpatient (CLI) | payer BC ==
[2018-11-13 09:44] LABS: INR 1.9; PROTHROMBIN TIME 18.7 sec (9.6-11.0)
== END | disposition home or self-care (01) ==
LOC: LAB 09:17
PROVIDERS: ATTEND Internal Medicine
DX: Z79.01 Long term (current) use of anticoagulants (principal)
CPT/HCPCS: 36415

== ENCOUNTER → 2018-12-02 | Outpatient (CLI) | payer BC ==
[2018-12-02 13:28] LABS: INR 2.2; PROTHROMBIN TIME 21.9 sec (9.6-11.0)
== END | disposition home or self-care (01) ==
LOC: LAB 12:41
PROVIDERS: ATTEND Internal Medicine
DX: Z79.01 Long term (current) use of anticoagulants (principal)
CPT/HCPCS: 36415

== ENCOUNTER → 2018-12-19 | Outpatient (CLI) | payer BC ==
[2018-12-19 09:50] LABS: BASOPHILS % 0.5 % (0.0-2.0); EOSINOPHILS % 2.7 % (0.0-5.0); HEMATOCRIT. 32.5 % (36.0-48.0); HEMOGLOBIN. 10.7 g/dL (12.0-16.0); INR 1.9; LYMPHOCYTES % 21.5 % (20.0-50.0); MEAN CORPUSCULAR HEMOGLOBIN 29.4 pg (28.0-32.0); MEAN CORPUSCULAR VOLUME 89.4 fL (81.0-99.0); MEAN PLATELET VOLUME 9.6 fl (7.4-10.4); NEUTROPHILS % 67.3 % (40.0-76.0); PLATELET 172 x1000/uL (130-400); PROTHROMBIN TIME 18.8 sec (9.6-11.0); RED BLOOD CELL COUNT 3.63 mill/uL (4.2-5.4); RED CELL DISTRIBUTION WIDTH 15.6 % (11.6-14.6)
[2018-12-19 10:19] LABS: CHLORIDE 107 mEq/L (98-107)
[2018-12-19 10:25] LABS: LDL CHOLESTEROL 70 mg/dL (5-100)
[2018-12-19 10:27] LABS: HDL CHOLESTEROL 81 mg/dL (40-59)
== END | disposition home or self-care (01) ==
LOC: LAB 09:09
PROVIDERS: ATTEND Internal Medicine
DX: D68.61 Antiphospholipid syndrome (principal); E78.5 Hyperlipidemia, unspecified; Z79.01 Long term (current) use of anticoagulants
CPT/HCPCS: 36415; 80061; 83036

== ENCOUNTER → 2019-01-08 | Outpatient (CLI) | payer BC ==
[2019-01-08 15:26] LABS: INR 1.5; PROTHROMBIN TIME 14.9 sec (9.6-11.0)
== END | disposition home or self-care (01) ==
LOC: LAB 14:32
PROVIDERS: ATTEND Internal Medicine
DX: Z79.01 Long term (current) use of anticoagulants (principal)
CPT/HCPCS: 36415

== ENCOUNTER → 2019-01-21 | Outpatient (CLI) | payer BC ==
[2019-01-21 10:55] LABS: INR 1.2; PROTHROMBIN TIME 12.5 sec (9.6-11.0)
== END | disposition home or self-care (01) ==
LOC: LAB 10:26
PROVIDERS: ATTEND Internal Medicine
DX: Z79.01 Long term (current) use of anticoagulants (principal)
CPT/HCPCS: 36415

== ENCOUNTER → 2019-02-06 | Outpatient (CLI) | payer BC ==
[2019-02-06 09:54] LABS: CLARITY URINE CLEAR (CLEAR); COLOR URINE YELLOW (YELLOW); KETONES URINE NEGATIVE (NEGATIVE); LEUKOCYTE ESTERASE URINE NEGATIVE (NEGATIVE); NITRITE URINE NEGATIVE (NEGATIVE); OCCULT BLOOD URINE NEGATIVE (NEGATIVE); PH URINE 5.5 (4.5-8.0); PROTEIN URINE 2+ (NEGATIVE); SPECIFIC GRAVITY URINE 1.016 (1.005-1.030); UROBILINOGEN URINE 0.2 E.U./dL (0.2-1.0)
[2019-02-06 09:59] LABS: BASOPHILS % 0.3 % (0.0-2.0); EOSINOPHILS % 1.7 % (0.0-5.0); HEMATOCRIT. 32.9 % (36.0-48.0); HEMOGLOBIN. 10.8 g/dL (12.0-16.0); MEAN CORPUSCULAR HEMOGLOBIN 29.5 pg (28.0-32.0); MEAN CORPUSCULAR VOLUME 89.9 fL (81.0-99.0); MEAN PLATELET VOLUME 9.1 fl (7.4-10.4); MONOCYTES % 8.9 % (2.0-8.0); NEUTROPHILS % 70.1 % (40.0-76.0); PLATELET 177 x1000/uL (130-400); RED BLOOD CELL COUNT 3.66 mill/uL (4.2-5.4)
[2019-02-06 10:11] LABS: CHLORIDE 108 mEq/L (98-107)
[2019-02-06 10:12] LABS: INR 1.9; PROTHROMBIN TIME 18.9 sec (9.6-11.0)
[2019-02-07 08:10] LABS: *CREATININE RANDOM URINE 95.3 mg/dL (Not Estab.); MICROALBUMIN RANDOM URINE 678.8 ug/mL (Not Estab.)
== END | disposition home or self-care (01) ==
LOC: LAB 09:22
PROVIDERS: ATTEND Internal Medicine
DX: D68.61 Antiphospholipid syndrome (principal); Z79.01 Long term (current) use of anticoagulants
CPT/HCPCS: 36415; 81003; 82043; 82570

== ENCOUNTER → 2019-02-10 | Outpatient (CLI) | payer BC | END | disposition home or self-care (01) | LOC: MAMMO 09:40 | PROVIDERS: ATTEND Family Medicine | DX: Z12.31 Encounter for screening mammogram for malignant neoplasm of breast (principal) | CPT/HCPCS: 77067 ==

== ENCOUNTER → 2019-05-04 | Outpatient (CLI) | payer BC ==
[2019-05-04 09:15] LABS: BASOPHILS % 0.5 % (0.0-2.0); EOSINOPHILS % 1.8 % (0.0-5.0); HEMATOCRIT. 35.7 % (36.0-48.0); LYMPHOCYTES % 24.2 % (20.0-50.0); MEAN CORPUSCULAR HEMOGLOBIN 29.5 pg (28.0-32.0); MEAN CORPUSCULAR VOLUME 87.7 fL (81.0-99.0); MEAN PLATELET VOLUME 9.1 fl (7.4-10.4); NEUTROPHILS % 64.5 % (40.0-76.0); PLATELET 189 x1000/uL (130-400); RED BLOOD CELL COUNT 4.07 mill/uL (4.2-5.4); RED CELL DISTRIBUTION WIDTH 15.3 % (11.6-14.6)
[2019-05-04 09:26] LABS: CLARITY URINE CLOUDY (CLEAR); COLOR URINE YELLOW (YELLOW); KETONES URINE NEGATIVE (NEGATIVE); LEUKOCYTE ESTERASE URINE NEGATIVE (NEGATIVE); NITRITE URINE NEGATIVE (NEGATIVE); OCCULT BLOOD URINE TRACE (NEGATIVE); PROTEIN URINE 3+ (NEGATIVE); UROBILINOGEN URINE 0.2 E.U./dL (0.2-1.0)
[2019-05-04 09:43] LABS: PROTHROMBIN TIME 31.4 sec (9.6-11.0)
[2019-05-04 09:58] LABS: CHLORIDE 108 mEq/L (98-107)
[2019-05-05 10:09] LABS: *CREATININE RANDOM URINE 130.9 mg/dL (Not Estab.)
[2019-05-05 13:06] LABS: MICROALBUMIN RANDOM URINE 2553.1 ug/mL (Not Estab.)
== END | disposition home or self-care (01) ==
LOC: LAB 08:31
PROVIDERS: ATTEND Internal Medicine
DX: D68.61 Antiphospholipid syndrome (principal); Z79.01 Long term (current) use of anticoagulants
CPT/HCPCS: 36415; 80053; 81003; 82043; 82570; 85025

== ENCOUNTER → 2019-05-14 | Outpatient (CLI) | payer BC ==
[2019-05-14 09:33] LABS: PROTHROMBIN TIME 21.4 sec (9.6-11.0)
== END | disposition home or self-care (01) ==
LOC: LAB 09:04
PROVIDERS: ATTEND Internal Medicine
DX: D68.61 Antiphospholipid syndrome (principal); E55.9 Vitamin D deficiency, unspecified
CPT/HCPCS: 36415; 82306; 85651; 86140

== ENCOUNTER → 2019-07-02 | Outpatient (CLI) | payer BC ==
[2019-07-02 09:50] LABS: CLARITY URINE CLOUDY (CLEAR); COLOR URINE YELLOW (YELLOW); KETONES URINE NEGATIVE (NEGATIVE); LEUKOCYTE ESTERASE URINE NEGATIVE (NEGATIVE); NITRITE URINE NEGATIVE (NEGATIVE); OCCULT BLOOD URINE NEGATIVE (NEGATIVE); PROTEIN URINE 3+ (NEGATIVE); UROBILINOGEN URINE 0.2 E.U./dL (0.2-1.0)
[2019-07-02 09:52] LABS: BASOPHILS % 0.3 % (0.0-2.0); HEMATOCRIT. 33.5 % (36.0-48.0); HEMOGLOBIN. 10.9 g/dL (12.0-16.0); LYMPHOCYTES % 23.3 % (20.0-50.0); MEAN CORPUSCULAR HEMOGLOBIN 29.1 pg (28.0-32.0); MEAN CORPUSCULAR VOLUME 89.5 fL (81.0-99.0); MEAN PLATELET VOLUME 9.1 fl (7.4-10.4); MONOCYTES % 11.2 % (2.0-8.0); NEUTROPHILS % 63.2 % (40.0-76.0); PLATELET 168 x1000/uL (130-400); RED BLOOD CELL COUNT 3.74 mill/uL (4.2-5.4)
[2019-07-02 09:54] LABS: CHLORIDE 106 mEq/L (98-107); INR 1.2; PROTHROMBIN TIME 12.9 sec (9.6-11.0)
[2019-07-03 08:07] LABS: *CREATININE RANDOM URINE 129.9 mg/dL (Not Estab.); MICROALBUMIN RANDOM URINE 881.1 ug/mL (Not Estab.)
== END | disposition home or self-care (01) ==
LOC: LAB 09:16
PROVIDERS: ATTEND Internal Medicine
DX: D68.61 Antiphospholipid syndrome (principal); E55.9 Vitamin D deficiency, unspecified; Z79.01 Long term (current) use of anticoagulants
CPT/HCPCS: 36415; 80053; 81003; 82043; 82306; 82570; 85025

== ENCOUNTER → 2019-07-13 | Outpatient (CLI) | payer BC ==
[2019-07-13 09:30] LABS: INR 2.5; PROTHROMBIN TIME 26.1 sec (9.6-11.0)
== END | disposition home or self-care (01) ==
LOC: LAB 08:46
PROVIDERS: ATTEND Internal Medicine
DX: D68.61 Antiphospholipid syndrome (principal); Z79.01 Long term (current) use of anticoagulants
CPT/HCPCS: 36415; 85651; 86140

== ENCOUNTER → 2019-08-13 | Outpatient (CLI) | payer BC ==
[2019-08-13 15:30] LABS: BASOPHILS % 0.5 % (0.0-2.0); EOSINOPHILS % 1.6 % (0.0-5.0); HEMATOCRIT. 34.2 % (36.0-48.0); HEMOGLOBIN. 11.4 g/dL (12.0-16.0); LYMPHOCYTES % 23.5 % (20.0-50.0); MEAN CORPUSCULAR HEMOGLOBIN 29.5 pg (28.0-32.0); MEAN CORPUSCULAR VOLUME 88.2 fL (81.0-99.0); MEAN PLATELET VOLUME 9.4 fl (7.4-10.4); MONOCYTES % 10.2 % (2.0-8.0); NEUTROPHILS % 64.2 % (40.0-76.0); PLATELET 162 x1000/uL (130-400); RED BLOOD CELL COUNT 3.88 mill/uL (4.2-5.4); RED CELL DISTRIBUTION WIDTH 15.3 % (11.6-14.6)
[2019-08-13 15:35] LABS: CLARITY URINE CLEAR (CLEAR); COLOR URINE YELLOW (YELLOW); KETONES URINE NEGATIVE (NEGATIVE); LEUKOCYTE ESTERASE URINE NEGATIVE (NEGATIVE); NITRITE URINE NEGATIVE (NEGATIVE); OCCULT BLOOD URINE 1+ (NEGATIVE); PH URINE 6.5 (4.5-8.0); PROTEIN URINE 3+ (NEGATIVE); SPECIFIC GRAVITY URINE 1.021 (1.005-1.030); UROBILINOGEN URINE 0.2 E.U./dL (0.2-1.0)
[2019-08-13 15:37] LABS: PROTHROMBIN TIME 46.8 sec (9.6-11.0)
[2019-08-13 15:49] LABS: CHLORIDE 108 mEq/L (98-107)
[2019-08-13 16:52] LABS: INR 4.5
[2019-08-15 08:11] LABS: *CREATININE RANDOM URINE 93.1 mg/dL (Not Estab.); MICROALBUMIN RANDOM URINE 802.3 ug/mL (Not Estab.)
== END | disposition home or self-care (01) ==
LOC: LAB 14:54
PROVIDERS: ATTEND Internal Medicine
DX: D68.61 Antiphospholipid syndrome (principal); Z79.01 Long term (current) use of anticoagulants
CPT/HCPCS: 36415; 80053; 81003; 82043; 82570; 85025

== ENCOUNTER → 2019-08-17 | Outpatient (CLI) | payer BC ==
[2019-08-17 12:07] LABS: INR 1.5; PROTHROMBIN TIME 15.6 sec (9.6-11.0)
== END | disposition home or self-care (01) ==
LOC: LAB 11:28
PROVIDERS: ATTEND Internal Medicine
DX: Z79.01 Long term (current) use of anticoagulants (principal)
CPT/HCPCS: 36415

== ENCOUNTER → 2019-08-24 | Outpatient (CLI) | payer BC ==
[2019-08-24 13:42] LABS: INR 1.5; PROTHROMBIN TIME 15.1 sec (9.6-11.0)
== END | disposition home or self-care (01) ==
LOC: LAB 13:00
PROVIDERS: ATTEND Internal Medicine
DX: Z79.01 Long term (current) use of anticoagulants (principal)
CPT/HCPCS: 36415

== ENCOUNTER → 2019-08-31 | Outpatient (CLI) | payer BC ==
[2019-08-31 12:16] LABS: INR 3.1; PROTHROMBIN TIME 30.9 sec (9.6-11.0)
== END | disposition home or self-care (01) ==
LOC: LAB 11:05
PROVIDERS: ATTEND Internal Medicine
DX: Z79.01 Long term (current) use of anticoagulants (principal)
CPT/HCPCS: 36415

== ENCOUNTER → 2019-09-14 | Outpatient (CLI) | payer BC ==
[2019-09-14 12:12] LABS: INR 2.9; PROTHROMBIN TIME 29.3 sec (9.6-11.0)
== END | disposition home or self-care (01) ==
LOC: LAB 11:40
PROVIDERS: ATTEND Internal Medicine
DX: Z79.01 Long term (current) use of anticoagulants (principal)
CPT/HCPCS: 36415

== ENCOUNTER → 2019-09-21 | Outpatient (CLI) | payer BC ==
[2019-09-21 10:09] LABS: BASOPHILS % 0.6 % (0.0-2.0); EOSINOPHILS % 2.5 % (0.0-5.0); HEMATOCRIT. 34.2 % (36.0-48.0); HEMOGLOBIN. 11.2 g/dL (12.0-16.0); MEAN CORPUSCULAR HEMOGLOBIN 28.8 pg (28.0-32.0); MEAN CORPUSCULAR VOLUME 88.2 fL (81.0-99.0); MEAN PLATELET VOLUME 9.2 fl (7.4-10.4); MONOCYTES % 8.6 % (2.0-8.0); NEUTROPHILS % 68.3 % (40.0-76.0); PLATELET 206 x1000/uL (130-400); RED BLOOD CELL COUNT 3.88 mill/uL (4.2-5.4); RED CELL DISTRIBUTION WIDTH 14.9 % (11.6-14.6)
[2019-09-21 10:33] LABS: CLARITY URINE CLEAR (CLEAR); KETONES URINE NEGATIVE (NEGATIVE); LEUKOCYTE ESTERASE URINE NEGATIVE (NEGATIVE); NITRITE URINE NEGATIVE (NEGATIVE); OCCULT BLOOD URINE NEGATIVE (NEGATIVE); PROTEIN URINE 2+ (NEGATIVE); SPECIFIC GRAVITY URINE 1.014 (1.005-1.030); UROBILINOGEN URINE 0.2 E.U./dL (0.2-1.0)
[2019-09-21 10:55] LABS: COLOR URINE STRAW (YELLOW)
[2019-09-21 11:00] LABS: CHLORIDE 107 mEq/L (98-107)
[2019-09-21 11:07] LABS: LDL CHOLESTEROL 61 mg/dL (5-100)
[2019-09-21 11:08] LABS: HDL CHOLESTEROL 87 mg/dL (40-59)
[2019-09-21 11:09] LABS: T4 FREE 1.11 ng/dL (0.76-1.46)
[2019-09-21 11:49] LABS: VITAMIN B12 SERUM 398 pg/mL (211-911)
[2019-09-21 12:11] LABS: FOLIC ACID (FOLATE) SERUM > 20.00 ng/mL (>5.38)
[2019-09-22 08:07] LABS: THYROID PEROXIDASE ANTIBODY < 9 IU/mL (0-34); VITAMIN D 25-OH 48.1 ng/mL (30.0-100.0)
== END | disposition home or self-care (01) ==
LOC: LAB 09:13
PROVIDERS: ATTEND Internal Medicine
DX: Z79.01 Long term (current) use of anticoagulants (principal)
CPT/HCPCS: 36415; 80053; 80061; 81003; 82306; 82607; 82746; 83036; 84439; 84443; 84481; 85025; 86376

== ENCOUNTER → 2019-09-28 | Outpatient (CLI) | payer BC ==
[2019-09-28 11:27] LABS: INR 1.6; PROTHROMBIN TIME 16.1 sec (9.6-11.0)
== END | disposition home or self-care (01) ==
LOC: LAB 10:56
PROVIDERS: ATTEND Internal Medicine
DX: Z79.01 Long term (current) use of anticoagulants (principal)
CPT/HCPCS: 36415

== ENCOUNTER → 2019-10-20 | Outpatient (CLI) | payer BC ==
[2019-10-20 10:36] LABS: INR 2.2; PROTHROMBIN TIME 22.1 sec (9.6-11.0)
== END | disposition home or self-care (01) ==
LOC: LAB 09:35
PROVIDERS: ATTEND Internal Medicine
DX: Z79.01 Long term (current) use of anticoagulants (principal)
CPT/HCPCS: 36415

== ENCOUNTER → 2019-12-16 | Outpatient (CLI) | payer BC ==
[2019-12-16 14:18] LABS: INR 2.9
== END | disposition home or self-care (01) ==
LOC: LAB 13:52
PROVIDERS: ATTEND Internal Medicine
DX: Z79.01 Long term (current) use of anticoagulants (principal)
CPT/HCPCS: 36415

== ENCOUNTER → 2020-01-20 | Outpatient (CLI) | payer BC ==
[2020-01-20 09:55] LABS: T4 FREE 1.08 ng/dL (0.76-1.46)
== END | disposition home or self-care (01) ==
LOC: LAB 08:52
PROVIDERS: ATTEND Family Medicine
DX: E78.5 Hyperlipidemia, unspecified (principal); I10 Essential (primary) hypertension; E03.9 Hypothyroidism, unspecified; E55.9 Vitamin D deficiency, unspecified; R73.03 Prediabetes
CPT/HCPCS: 36415; 80061; 82306; 83036; 84439; 84443; 84481

== ENCOUNTER → 2020-01-20 | Outpatient (CLI) | payer BC ==
[2020-01-20 09:28] LABS: BASOPHILS % 0.8 % (0.0-2.0); HEMATOCRIT. 37.1 % (36.0-48.0); LYMPHOCYTES % 22.4 % (20.0-50.0); MEAN CORPUSCULAR HEMOGLOBIN 28.4 pg (28.0-32.0); MEAN CORPUSCULAR VOLUME 88.2 fL (81.0-99.0); NEUTROPHILS % 66.8 % (40.0-76.0); RED BLOOD CELL COUNT 4.21 mill/uL (4.2-5.4); RED CELL DISTRIBUTION WIDTH 15.9 % (11.6-14.6)
[2020-01-20 09:39] LABS: CLARITY URINE CLEAR (CLEAR); COLOR URINE YELLOW (YELLOW); KETONES URINE NEGATIVE (NEGATIVE); LEUKOCYTE ESTERASE URINE NEGATIVE (NEGATIVE); NITRITE URINE NEGATIVE (NEGATIVE); OCCULT BLOOD URINE TRACE (NEGATIVE); PROTEIN URINE 2+ (NEGATIVE); SPECIFIC GRAVITY URINE 1.021 (1.005-1.030); UROBILINOGEN URINE 0.2 E.U./dL (0.2-1.0)
[2020-01-20 09:43] LABS: CHLORIDE 109 mEq/L (98-107)
[2020-01-20 09:47] LABS: INR 2.2
[2020-01-20 10:16] LABS: PLATELET ESTIMATE NORMAL
[2020-01-21 08:10] LABS: *CREATININE RANDOM URINE 157.7 mg/dL (Not Estab.); MICROALBUMIN RANDOM URINE 697.7 ug/mL (Not Estab.)
== END | disposition home or self-care (01) ==
LOC: LAB 08:48
PROVIDERS: ATTEND Internal Medicine
DX: D68.61 Antiphospholipid syndrome (principal); Z79.01 Long term (current) use of anticoagulants
CPT/HCPCS: 36415; 80053; 81003; 82043; 82570; 85025; 85651; 86140

== ENCOUNTER → 2020-03-17 | Outpatient (CLI) | payer BC ==
[2020-03-17 09:34] LABS: BASOPHILS % 0.4 % (0.0-2.0); EOSINOPHILS % 1.8 % (0.0-5.0); HEMATOCRIT. 34.4 % (36.0-48.0); HEMOGLOBIN. 11.2 g/dL (12.0-16.0); LYMPHOCYTES % 17.6 % (20.0-50.0); MEAN CORPUSCULAR VOLUME 85.9 fL (81.0-99.0); MEAN PLATELET VOLUME 9.2 fl (7.4-10.4); MONOCYTES % 8.2 % (2.0-8.0); PLATELET 156 x1000/uL (130-400); RED CELL DISTRIBUTION WIDTH 16.1 % (11.6-14.6)
[2020-03-17 09:36] LABS: CLARITY URINE CLEAR (CLEAR); COLOR URINE YELLOW (YELLOW); KETONES URINE NEGATIVE (NEGATIVE); LEUKOCYTE ESTERASE URINE NEGATIVE (NEGATIVE); NITRITE URINE NEGATIVE (NEGATIVE); OCCULT BLOOD URINE TRACE (NEGATIVE); PROTEIN URINE 3+ (NEGATIVE); UROBILINOGEN URINE 0.2 E.U./dL (0.2-1.0)
[2020-03-17 09:44] LABS: CHLORIDE 108 mEq/L (98-107); INR 2.4
[2020-03-17 09:53] LABS: C REACTIVE PROTEIN QUANT 6.7 mg/L (0.0-3.0)
[2020-03-18 08:08] LABS: MICROALBUMIN RANDOM URINE 1199.5 ug/mL (Not Estab.)
== END | disposition home or self-care (01) ==
LOC: LAB 09:01
PROVIDERS: ATTEND Internal Medicine
DX: D68.61 Antiphospholipid syndrome (principal); Z79.01 Long term (current) use of anticoagulants
CPT/HCPCS: 36415; 80053; 81003; 82043; 82570; 85025; 85651; 86140

== ENCOUNTER → 2020-04-13 | Outpatient (CLI) | payer BC ==
[2020-04-13 09:59] LABS: BASOPHILS % 0.5 % (0.0-2.0); CLARITY URINE CLEAR (CLEAR); COLOR URINE YELLOW (YELLOW); EOSINOPHILS % 2.8 % (0.0-5.0); HEMATOCRIT. 35.2 % (36.0-48.0); HEMOGLOBIN. 11.4 g/dL (12.0-16.0); KETONES URINE TRACE (NEGATIVE); LEUKOCYTE ESTERASE URINE NEGATIVE (NEGATIVE); LYMPHOCYTES % 19.6 % (20.0-50.0); MEAN CORPUSCULAR VOLUME 86.3 fL (81.0-99.0); MEAN PLATELET VOLUME 9.2 fl (7.4-10.4); MONOCYTES % 10.2 % (2.0-8.0); NEUTROPHILS % 66.9 % (40.0-76.0); NITRITE URINE NEGATIVE (NEGATIVE); OCCULT BLOOD URINE 1+ (NEGATIVE); PH URINE 5.5 (4.5-8.0); PLATELET 164 x1000/uL (130-400); PROTEIN URINE 3+ (NEGATIVE); RED BLOOD CELL COUNT 4.08 mill/uL (4.2-5.4); RED CELL DISTRIBUTION WIDTH 16.2 % (11.6-14.6); SPECIFIC GRAVITY URINE 1.023 (1.005-1.030); UROBILINOGEN URINE 0.2 E.U./dL (0.2-1.0)
[2020-04-13 10:07] LABS: CHLORIDE 109 mEq/L (98-107)
[2020-04-13 10:15] LABS: HDL CHOLESTEROL 93 mg/dL (40-59)
[2020-04-13 10:17] LABS: LDL CHOLESTEROL 63 mg/dL (5-100)
== END | disposition home or self-care (01) ==
LOC: LAB 09:29
PROVIDERS: ATTEND Family Medicine
DX: N23 Unspecified renal colic (principal); E03.9 Hypothyroidism, unspecified
CPT/HCPCS: 36415; 80053; 80061; 81003; 82306; 83036; 84443; 84481; 85025; 86140

== ENCOUNTER → 2020-04-26 | Outpatient (CLI) | payer BC | END | disposition home or self-care (01) | LOC: LAB 10:54 | PROVIDERS: ATTEND Family Medicine | DX: Z11.52 Encounter for screening for COVID-19 (principal) | CPT/HCPCS: 87426 ==

== ENCOUNTER → 2020-04-27 | Outpatient (CLI) | payer BC ==
[2020-04-27 08:53] LABS: INR 1.7; PROTHROMBIN TIME 17.8 sec (9.6-11.0)
== END | disposition home or self-care (01) ==
LOC: US 08:12
PROVIDERS: ATTEND Family Medicine
DX: N23 Unspecified renal colic (principal); Z79.01 Long term (current) use of anticoagulants
CPT/HCPCS: 36415; 76770

== ENCOUNTER → 2020-06-03 | Outpatient (CLI) | payer BC ==
[2020-06-03 13:22] LABS: INR 2.5; PROTHROMBIN TIME 25.1 sec (9.6-11.0)
== END | disposition home or self-care (01) ==
LOC: LAB 09:28
PROVIDERS: ATTEND Internal Medicine
DX: Z79.01 Long term (current) use of anticoagulants (principal)
CPT/HCPCS: 36415

== ENCOUNTER → 2020-07-15 | Outpatient (CLI) | payer BC ==
[2020-07-15 10:07] LABS: BASOPHILS % 0.9 % (0.0-2.0); EOSINOPHILS % 2.3 % (0.0-5.0); HEMOGLOBIN. 11.4 g/dL (12.0-16.0); LYMPHOCYTES % 16.3 % (20.0-50.0); MEAN CORPUSCULAR HEMOGLOBIN 28.1 pg (28.0-32.0); MEAN CORPUSCULAR VOLUME 83.8 fL (81.0-99.0); MEAN PLATELET VOLUME 8.9 fl (7.4-10.4); MONOCYTES % 8.9 % (2.0-8.0); NEUTROPHILS % 71.6 % (40.0-76.0); PLATELET 178 x1000/uL (130-400); RED BLOOD CELL COUNT 4.06 mill/uL (4.2-5.4); RED CELL DISTRIBUTION WIDTH 16.8 % (11.6-14.6)
[2020-07-15 10:18] LABS: INR 2.7; PROTHROMBIN TIME 26.6 sec (9.6-11.0)
[2020-07-15 10:24] LABS: CLARITY URINE CLOUDY (CLEAR); COLOR URINE YELLOW (YELLOW); KETONES URINE NEGATIVE (NEGATIVE); LEUKOCYTE ESTERASE URINE NEGATIVE (NEGATIVE); NITRITE URINE NEGATIVE (NEGATIVE); OCCULT BLOOD URINE TRACE (NEGATIVE); PROTEIN URINE 3+ (NEGATIVE); SPECIFIC GRAVITY URINE 1.022 (1.005-1.030); UROBILINOGEN URINE 0.2 E.U./dL (0.2-1.0)
[2020-07-15 10:27] LABS: CHLORIDE 107 mEq/L (98-107)
[2020-07-15 10:34] LABS: C REACTIVE PROTEIN QUANT 8.1 mg/L (0.0-3.0)
[2020-07-16 07:08] LABS: *CREATININE RANDOM URINE 231.9 mg/dL (Not Estab.); MICROALBUMIN RANDOM URINE 1034.6 ug/mL (Not Estab.)
== END | disposition home or self-care (01) ==
LOC: LAB 09:26
PROVIDERS: ATTEND Internal Medicine
DX: D68.61 Antiphospholipid syndrome (principal); E55.9 Vitamin D deficiency, unspecified; Z79.01 Long term (current) use of anticoagulants
CPT/HCPCS: 36415; 80053; 81003; 82043; 82306; 82570; 85025; 85651; 86140

== ENCOUNTER → 2020-09-02 | Outpatient (CLI) | payer BC ==
[2020-09-02 12:11] LABS: INR 1.8; PROTHROMBIN TIME 18.2 sec (9.6-11.0)
== END | disposition home or self-care (01) ==
LOC: LAB 11:42
PROVIDERS: ATTEND Internal Medicine
DX: Z79.01 Long term (current) use of anticoagulants (principal)
CPT/HCPCS: 36415

== ENCOUNTER 2020-12-18 17:13 | Emergency (ER) | payer BC ==
[~2020-12-18] VITALS: Ht 160 cm; Wt 95.0 kg
[2020-12-18] MEDS ORDERED: DIPHENHYDRAMINE 50MG/ML VIAL IV ONE (18:15)
[2020-12-18] MEDS ORDERED: METOCLOPRAMIDE HCL 10MG/2ML VIAL IV ONE (18:15)
[2020-12-18] MEDS ORDERED: IBUP-2028 MT (18:26)
[2020-12-18] MEDS ORDERED: AMLODIPINE 5MG TABLET PO ONE (18:30)
[2020-12-18] MEDS ORDERED: KETOROLAC 15MG/ML VIAL IV ONE (19:30)
[2020-12-18] MEDS ORDERED: KETOROLAC 60MG/2ML VIAL IM ONE (19:30)
[2020-12-18] MEDS ORDERED: ONDANSETRON HCL 4MG/2ML INJ IV STA (19:51)
[2020-12-18] MEDS ORDERED: MORPHINE SULFATE 4 MG/ML CPJ (NOT FOR IM USE) IV STA (19:51)
[2020-12-18] MEDS ORDERED: SODIUM CHLORIDE 0.9% 1,000 ML IV ONE (20:00)
[2020-12-18] MEDS ORDERED: LEVETIRACETAM 500MG PREMIX 100 ML IV ONE (20:00)
[2020-12-18] MEDS ORDERED: NICARDIPINE 50 MG in SODIUM CHLORIDE 0.9% 230 ML IV STA (20:06)
[2020-12-18] MEDS ORDERED: METOCLOPRAMIDE HCL 10MG/2ML VIAL IV NR (20:15)
[2020-12-18] MEDS ORDERED: NICARDIPINE 50 MG in SODIUM CHLORIDE 0.9% 230 ML IV NR (20:15)
[2020-12-18] MEDS ORDERED: IOHEXOL-350 100 ML BOTTLE ONE ×2 (20:59→23:34)
[2020-12-18 21:41] LABS: BASOPHILS % 0.4 % (0.0-2.0); EOSINOPHILS % 0.8 % (0.0-5.0); HEMATOCRIT. 39.5 % (36.0-48.0); HEMOGLOBIN. 12.6 g/dL (12.0-16.0); LYMPHOCYTES % 14.5 % (20.0-50.0); MEAN CORPUSCULAR HEMOGLOBIN 28.2 pg (28.0-32.0); MEAN CORPUSCULAR VOLUME 88.2 fL (81.0-99.0); MEAN PLATELET VOLUME 9.5 fl (7.4-10.4); MONOCYTES % 7.3 % (2.0-8.0); PLATELET 180 x1000/uL (130-400); RED BLOOD CELL COUNT 4.47 mill/uL (4.2-5.4); RED CELL DISTRIBUTION WIDTH 17.1 % (11.6-14.6)
[2020-12-18] MEDS ORDERED: VANCOMYCIN 1 G PREMIX 200 ML IV ONE (21:45)
[2020-12-18] MEDS ORDERED: PIPERACILLIN/TAZ 3.375G PREMIX 50 ML IV ONE (21:45)
[2020-12-18 21:50] LABS: CHLORIDE 108 mEq/L (98-107)
[2020-12-18 23:05] LABS: INR 2.1; PARTIAL THROMBOPLASTIN TIME 42.3 sec (23.4-31.0); PROTHROMBIN TIME 21.2 sec (9.6-11.0)
[2020-12-18] MEDS ORDERED: PHYTONADIONE 10 MG in DEXTROSE 5% WATER 49 ML IV ONE (23:15)
[2020-12-18] MEDS ORDERED: PHYTONADIONE 10MG/ML AMP IM ONE (23:15)
[2020-12-19 00:06] VITALS: BP 141/75
== END 2020-12-19 01:20 | disposition short-term general hospital (02) ==
LOC: ER 17:13 → CANBEDREQ 23:47 → ER 12-19 01:20
DX: I60.8 Other nontraumatic subarachnoid hemorrhage (principal); I67.1 Cerebral aneurysm, nonruptured; G91.9 Hydrocephalus, unspecified; I16.1 Hypertensive emergency; Z20.822 Contact with and (suspected) exposure to COVID-19
CPT/HCPCS: 36415; 70450; 70496; 70498; 71045; 80053; 83605; 83880; 84484; 85025; 85610; 85730; 86850; 86900; 86901; 86927; 87040; 87426; 93005; 96365; 96372; 96375; 99291; J1200; J1953; J2270; J2405; J2543; J2765; J3370; J3430; J3490; J7030; J7050; Q9967; J1885; J7060; P9017

== ENCOUNTER 2021-01-04 21:12 | Inpatient (IN) | payer BC ==
[~2021-01-04] VITALS: Ht 162.6 cm; Wt 142.2 kg
[2021-01-04 21:12] VITALS: BP 117/81
[~2021-01-04 21:12] MED LIST changes: +IBUP-2028 MT
[2021-01-05] MEDS ORDERED: SENNOSIDES/DOCUSATE SOD 8.6/50MG TABLET PO PRN (02:15)
[2021-01-05] MEDS ORDERED: POLYETHYLENE GLYCOL 3350 (17GM) 1 DOSE PACK PO PRN (02:15)
[2021-01-05] MEDS ORDERED: LACTULOSE 20G/30ML UDC PO PRN (02:15)
[2021-01-05] MEDS ORDERED: BISACODYL 10MG SUPP PR PRN (02:15)
[2021-01-05] MEDS ORDERED: ACETAMINOPHEN 650MG SUPP PR PRN (02:15)
[2021-01-05] MEDS ORDERED: MAGNESIUM HYDROXIDE 400MG/5ML 30ML UDC PO PRN (02:15)
[2021-01-05] MEDS ORDERED: ACETAMINOPHEN 650MG/20.3ML UDC PO PRN (03:00)
[2021-01-05] MEDS ORDERED: ACETAMINOPHEN 320MG/10ML UDC PO PRN ×2 (03:00)
[2021-01-05] MEDS: DILTIAZEM HCL 30MG TABLET PO SCH ×3 (06:43→22:17)
[2021-01-05 08:00] VITALS: BP 134/75
[2021-01-05] MEDS: ASPIRIN 81MG TABLET PO SCH (08:52)
[2021-01-05] MEDS: ASCORBIC ACID 500 MG TABLET PO SCH (08:53)
[2021-01-05] MEDS: SENNOSIDES/DOCUSATE SOD 8.6/50MG TABLET PO SCH ×2 (08:53→17:10)
[2021-01-05] MEDS ORDERED: HEPARIN 5000 UNITS/ML VIAL SUBCUT SCH (09:00)
[2021-01-05 10:25] LABS: BASOPHILS % 1.2 % (0.0-2.0); EOSINOPHILS % 3.2 % (0.0-5.0); HEMATOCRIT. 32.2 % (36.0-48.0); HEMOGLOBIN. 10.8 g/dL (12.0-16.0); LYMPHOCYTES % 17.1 % (20.0-50.0); MEAN CORPUSCULAR HEMOGLOBIN 29.4 pg (28.0-32.0); MEAN CORPUSCULAR VOLUME 87.7 fL (81.0-99.0); MEAN PLATELET VOLUME 9.4 fl (7.4-10.4); MONOCYTES % 8.9 % (2.0-8.0); NEUTROPHILS % 69.6 % (40.0-76.0); PLATELET 269 x1000/uL (130-400); RED BLOOD CELL COUNT 3.67 mill/uL (4.2-5.4); RED CELL DISTRIBUTION WIDTH 17.3 % (11.6-14.6)
[2021-01-05 17:39] LABS: PARTIAL THROMBOPLASTIN TIME 30.8 sec (23.4-31.0); PROTHROMBIN TIME 10.9 sec (9.6-11.0)
[2021-01-05 20:00] VITALS: BP 135/77
[2021-01-05] MEDS: ATORVASTATIN CALCIUM 20MG TABLET PO SCH (22:17)
[2021-01-05] MEDS: DOXAZOSIN MESYLATE 2MG TABLET PO SCH (22:18)
[2021-01-06] MEDS: DILTIAZEM HCL 30MG TABLET PO SCH ×3 (06:19→22:26)
[2021-01-06 07:51] VITALS: BP 122/75
[2021-01-06] MEDS: SENNOSIDES/DOCUSATE SOD 8.6/50MG TABLET PO SCH ×2 (08:38→16:02)
[2021-01-06] MEDS: ASPIRIN 81MG TABLET PO SCH (08:38)
[2021-01-06] MEDS: ASCORBIC ACID 500 MG TABLET PO SCH (08:38)
[2021-01-06 20:00] VITALS: BP 142/68
[2021-01-06] MEDS: ATORVASTATIN CALCIUM 20MG TABLET PO SCH (22:25)
[2021-01-06] MEDS: DOXAZOSIN MESYLATE 2MG TABLET PO SCH (22:25)
[2021-01-07] MEDS: DILTIAZEM HCL 30MG TABLET PO SCH ×3 (05:33→22:58)
[2021-01-07 06:18] VITALS: BP 129/68
[2021-01-07 08:01] VITALS: BP 117/86
[2021-01-07 08:44] LABS: BASOPHILS % 0.4 % (0.0-2.0); EOSINOPHILS % 3.2 % (0.0-5.0); HEMOGLOBIN. 10.5 g/dL (12.0-16.0); LYMPHOCYTES % 14.6 % (20.0-50.0); MEAN CORPUSCULAR HEMOGLOBIN 28.9 pg (28.0-32.0); MEAN CORPUSCULAR VOLUME 87.9 fL (81.0-99.0); MEAN PLATELET VOLUME 10.3 fl (7.4-10.4); MONOCYTES % 8.8 % (2.0-8.0); PLATELET 212 x1000/uL (130-400); RED BLOOD CELL COUNT 3.64 mill/uL (4.2-5.4); RED CELL DISTRIBUTION WIDTH 16.9 % (11.6-14.6)
[2021-01-07] MEDS: SENNOSIDES/DOCUSATE SOD 8.6/50MG TABLET PO SCH ×2 (09:00→17:00)
[2021-01-07 09:26] LABS: CHLORIDE 111 mEq/L (98-107)
[2021-01-07 09:33] LABS: PHOSPHORUS 3.1 mg/dL (2.5-4.9)
[2021-01-07] MEDS: ASCORBIC ACID 500 MG TABLET PO SCH (09:34)
[2021-01-07] MEDS: ASPIRIN 81MG TABLET PO SCH (09:34)
[2021-01-07 20:00] VITALS: BP 120/83
[2021-01-07] MEDS: ATORVASTATIN CALCIUM 20MG TABLET PO SCH (21:13)
[2021-01-07] MEDS: DOXAZOSIN MESYLATE 2MG TABLET PO SCH (21:13)
[2021-01-08] MEDS: DILTIAZEM HCL 30MG TABLET PO SCH ×3 (06:00→22:00)
[2021-01-08 08:00] VITALS: BP 137/71
[2021-01-08] MEDS: ASCORBIC ACID 500 MG TABLET PO SCH (08:34)
[2021-01-08] MEDS: SENNOSIDES/DOCUSATE SOD 8.6/50MG TABLET PO SCH ×2 (08:34→17:41)
[2021-01-08] MEDS: ASPIRIN 81MG TABLET PO SCH (08:34)
[2021-01-08 20:00] VITALS: BP 125/77
[2021-01-08] MEDS: ATORVASTATIN CALCIUM 20MG TABLET PO SCH (21:35)
[2021-01-08] MEDS: DOXAZOSIN MESYLATE 2MG TABLET PO SCH (21:35)
[2021-01-09] MEDS: DILTIAZEM HCL 30MG TABLET PO SCH ×3 (06:00→22:00)
[2021-01-09 08:00] VITALS: BP 113/50
[2021-01-09] MEDS: ASPIRIN 81MG TABLET PO SCH (08:38)
[2021-01-09] MEDS: ASCORBIC ACID 500 MG TABLET PO SCH (08:39)
[2021-01-09] MEDS: SENNOSIDES/DOCUSATE SOD 8.6/50MG TABLET PO SCH ×2 (08:41→17:57)
[2021-01-09 09:09] LABS: BASOPHILS % 0.5 % (0.0-2.0); EOSINOPHILS % 3.8 % (0.0-5.0); HEMATOCRIT. 30.5 % (36.0-48.0); HEMOGLOBIN. 9.9 g/dL (12.0-16.0); LYMPHOCYTES % 18.7 % (20.0-50.0); MEAN CORPUSCULAR HEMOGLOBIN 28.3 pg (28.0-32.0); MEAN CORPUSCULAR VOLUME 87.3 fL (81.0-99.0); MEAN PLATELET VOLUME 9.8 fl (7.4-10.4); MONOCYTES % 8.6 % (2.0-8.0); NEUTROPHILS % 68.4 % (40.0-76.0); PLATELET 214 x1000/uL (130-400); RED CELL DISTRIBUTION WIDTH 16.5 % (11.6-14.6)
[2021-01-09] MEDS ORDERED: IPRATROPIUM/ALBUTEROL 0.5-3(2.5)MG/3ML NEB HHN PRN (16:30)
[2021-01-09 20:00] VITALS: BP_SYST 124; BP_SYST 126; BP_DIAS 72; BP_DIAS 79
[2021-01-09] MEDS: ATORVASTATIN CALCIUM 20MG TABLET PO SCH (21:49)
[2021-01-09] MEDS: DOXAZOSIN MESYLATE 2MG TABLET PO SCH (21:50)
[2021-01-10] MEDS: DILTIAZEM HCL 30MG TABLET PO SCH ×3 (06:00→21:46)
[2021-01-10 07:52] VITALS: BP 108/63
[2021-01-10] MEDS: ASCORBIC ACID 500 MG TABLET PO SCH (08:06)
[2021-01-10] MEDS: ASPIRIN 81MG TABLET PO SCH (08:06)
[2021-01-10] MEDS: SENNOSIDES/DOCUSATE SOD 8.6/50MG TABLET PO SCH ×2 (08:07→17:40)
[2021-01-10] MEDS: ACETAMINOPHEN 650MG/20.3ML UDC PO PRN (08:31)
[2021-01-10 20:00] VITALS: BP 124/80
[2021-01-10] MEDS: ATORVASTATIN CALCIUM 20MG TABLET PO SCH (21:45)
[2021-01-10] MEDS: DOXAZOSIN MESYLATE 2MG TABLET PO SCH (21:46)
[2021-01-11] MEDS: DILTIAZEM HCL 30MG TABLET PO SCH ×3 (06:23→21:18)
[2021-01-11 08:00] VITALS: BP 115/66
[2021-01-11] MEDS: ASPIRIN 81MG TABLET PO SCH (08:50)
[2021-01-11] MEDS: SENNOSIDES/DOCUSATE SOD 8.6/50MG TABLET PO SCH ×2 (08:50→16:45)
[2021-01-11] MEDS: ASCORBIC ACID 500 MG TABLET PO SCH (08:50)
[2021-01-11 20:00] VITALS: BP 106/85
[2021-01-11] MEDS: DOXAZOSIN MESYLATE 2MG TABLET PO SCH (21:00)
[2021-01-11] MEDS: ATORVASTATIN CALCIUM 20MG TABLET PO SCH (21:17)
[2021-01-12] MEDS: DILTIAZEM HCL 30MG TABLET PO SCH ×3 (05:34→21:08)
[2021-01-12 08:03] VITALS: BP 123/81
[2021-01-12] MEDS: ASPIRIN 81MG TABLET PO SCH (08:15)
[2021-01-12] MEDS: SENNOSIDES/DOCUSATE SOD 8.6/50MG TABLET PO SCH ×2 (08:15→17:11)
[2021-01-12] MEDS: ASCORBIC ACID 500 MG TABLET PO SCH (08:15)
[2021-01-12 20:00] VITALS: BP 129/96
[2021-01-12] MEDS: DOXAZOSIN MESYLATE 2MG TABLET PO SCH (21:07)
[2021-01-12] MEDS: ATORVASTATIN CALCIUM 20MG TABLET PO SCH (21:07)
[2021-01-13] MEDS: DILTIAZEM HCL 30MG TABLET PO SCH ×3 (05:30→20:46)
[2021-01-13 08:00] VITALS: BP 134/72
[2021-01-13] MEDS: ASCORBIC ACID 500 MG TABLET PO SCH (09:38)
[2021-01-13] MEDS: ASPIRIN 81MG TABLET PO SCH (09:38)
[2021-01-13] MEDS: SENNOSIDES/DOCUSATE SOD 8.6/50MG TABLET PO SCH ×2 (09:38→16:38)
[2021-01-13 20:00] VITALS: BP 122/94
[2021-01-13] MEDS: ATORVASTATIN CALCIUM 20MG TABLET PO SCH (20:45)
[2021-01-13] MEDS: DOXAZOSIN MESYLATE 2MG TABLET PO SCH (20:46)
[2021-01-13 21:43] LABS: BASOPHILS % 0.5 % (0.0-2.0); EOSINOPHILS % 3.4 % (0.0-5.0); HEMATOCRIT. 32.4 % (36.0-48.0); HEMOGLOBIN. 10.6 g/dL (12.0-16.0); LYMPHOCYTES % 19.2 % (20.0-50.0); MEAN CORPUSCULAR HEMOGLOBIN 28.6 pg (28.0-32.0); MEAN CORPUSCULAR VOLUME 87.8 fL (81.0-99.0); MEAN PLATELET VOLUME 10.1 fl (7.4-10.4); MONOCYTES % 8.4 % (2.0-8.0); NEUTROPHILS % 68.5 % (40.0-76.0); PLATELET 211 x1000/uL (130-400); RED CELL DISTRIBUTION WIDTH 16.4 % (11.6-14.6)
[2021-01-14] MEDS: DILTIAZEM HCL 30MG TABLET PO SCH ×3 (06:22→21:07)
[2021-01-14 08:00] VITALS: BP 135/57
[2021-01-14] MEDS: ASPIRIN 81MG TABLET PO SCH (08:48)
[2021-01-14] MEDS: SENNOSIDES/DOCUSATE SOD 8.6/50MG TABLET PO SCH ×2 (08:48→17:00)
[2021-01-14] MEDS: ASCORBIC ACID 500 MG TABLET PO SCH (08:48)
[2021-01-14 17:45] VITALS: BP 121/75
[2021-01-14 20:00] VITALS: BP 117/78
[2021-01-14] MEDS: ATORVASTATIN CALCIUM 20MG TABLET PO SCH (21:07)
[2021-01-14] MEDS: DOXAZOSIN MESYLATE 2MG TABLET PO SCH (21:07)
[2021-01-15] MEDS: DILTIAZEM HCL 30MG TABLET PO SCH ×3 (06:35→21:54)
[2021-01-15 08:00] VITALS: BP 125/71
[2021-01-15] MEDS: ASCORBIC ACID 500 MG TABLET PO SCH (08:33)
[2021-01-15] MEDS: SENNOSIDES/DOCUSATE SOD 8.6/50MG TABLET PO SCH ×2 (08:33→17:37)
[2021-01-15] MEDS: ASPIRIN 81MG TABLET PO SCH (08:33)
[2021-01-15 14:00] VITALS: BP 108/69
[2021-01-15 20:00] VITALS: BP 116/72
[2021-01-15] MEDS: ATORVASTATIN CALCIUM 20MG TABLET PO SCH (21:52)
[2021-01-15] MEDS: DOXAZOSIN MESYLATE 2MG TABLET PO SCH (21:53)
[2021-01-16] MEDS: DILTIAZEM HCL 30MG TABLET PO SCH ×3 (05:41→22:03)
[2021-01-16 06:45] LABS: BASOPHILS % 0.4 % (0.0-2.0); EOSINOPHILS % 4.3 % (0.0-5.0); HEMATOCRIT. 29.8 % (36.0-48.0); HEMOGLOBIN. 9.7 g/dL (12.0-16.0); LYMPHOCYTES % 18.4 % (20.0-50.0); MEAN CORPUSCULAR HEMOGLOBIN 28.5 pg (28.0-32.0); MEAN CORPUSCULAR VOLUME 87.5 fL (81.0-99.0); MEAN PLATELET VOLUME 9.2 fl (7.4-10.4); NEUTROPHILS % 66.9 % (40.0-76.0); PLATELET 166 x1000/uL (130-400); RED BLOOD CELL COUNT 3.41 mill/uL (4.2-5.4); RED CELL DISTRIBUTION WIDTH 16.6 % (11.6-14.6)
[2021-01-16 08:30] VITALS: BP 100/80
[2021-01-16 08:52] VITALS: BP 79/50
[2021-01-16 09:00] VITALS: BP 116/68
[2021-01-16 09:01] VITALS: BP 109/80
[2021-01-16 09:05] VITALS: BP 107/56
[2021-01-16] MEDS: ASPIRIN 81MG TABLET PO SCH (09:40)
[2021-01-16] MEDS: ASCORBIC ACID 500 MG TABLET PO SCH (09:40)
[2021-01-16] MEDS: SENNOSIDES/DOCUSATE SOD 8.6/50MG TABLET PO SCH ×2 (09:41→17:57)
[2021-01-16 20:00] VITALS: BP_SYST 123; BP_SYST 140; BP_DIAS 74; BP_DIAS 80
[2021-01-16] MEDS: DOXAZOSIN MESYLATE 2MG TABLET PO SCH (22:02)
[2021-01-16] MEDS: ATORVASTATIN CALCIUM 20MG TABLET PO SCH (22:02)
[2021-01-17] MEDS: DILTIAZEM HCL 30MG TABLET PO SCH ×3 (06:15→21:53)
[2021-01-17 08:04] VITALS: BP 133/86
[2021-01-17] MEDS: SENNOSIDES/DOCUSATE SOD 8.6/50MG TABLET PO SCH ×2 (09:00→17:00)
[2021-01-17] MEDS: ASPIRIN 81MG TABLET PO SCH (09:24)
[2021-01-17] MEDS: ASCORBIC ACID 500 MG TABLET PO SCH (09:24)
[2021-01-17] MEDS: ACETAMINOPHEN 650MG/20.3ML UDC PO PRN (11:59)
[2021-01-17 20:00] VITALS: BP 142/94
[2021-01-17] MEDS: ATORVASTATIN CALCIUM 20MG TABLET PO SCH (21:52)
[2021-01-17] MEDS: DOXAZOSIN MESYLATE 2MG TABLET PO SCH (21:53)
[2021-01-18] MEDS: ACETAMINOPHEN 650MG/20.3ML UDC PO PRN ×2 (00:09→23:52)
[2021-01-18] MEDS: DILTIAZEM HCL 30MG TABLET PO SCH ×3 (06:25→20:52)
[2021-01-18 08:06] VITALS: BP 142/86
[2021-01-18] MEDS: ASPIRIN 81MG TABLET PO SCH (09:46)
[2021-01-18] MEDS: ASCORBIC ACID 500 MG TABLET PO SCH (09:46)
[2021-01-18] MEDS: SENNOSIDES/DOCUSATE SOD 8.6/50MG TABLET PO SCH ×2 (09:46→18:15)
[2021-01-18 20:00] VITALS: BP 128/88
[2021-01-18] MEDS: DOXAZOSIN MESYLATE 2MG TABLET PO SCH (20:53)
[2021-01-18] MEDS: ATORVASTATIN CALCIUM 20MG TABLET PO SCH (20:53)
[2021-01-19] MEDS: DILTIAZEM HCL 30MG TABLET PO SCH ×3 (06:38→22:53)
[2021-01-19] MEDS: ASPIRIN 81MG TABLET PO SCH (09:43)
[2021-01-19] MEDS: ASCORBIC ACID 500 MG TABLET PO SCH (09:44)
[2021-01-19] MEDS: SENNOSIDES/DOCUSATE SOD 8.6/50MG TABLET PO SCH ×2 (09:44→18:32)
[2021-01-19] MEDS: ACETAMINOPHEN 650MG/20.3ML UDC PO PRN ×2 (11:44→21:03)
[2021-01-19 20:00] VITALS: BP 150/77
[2021-01-19] MEDS: ATORVASTATIN CALCIUM 20MG TABLET PO SCH (22:52)
[2021-01-19] MEDS: DOXAZOSIN MESYLATE 2MG TABLET PO SCH (22:53)
[2021-01-20] MEDS: DILTIAZEM HCL 30MG TABLET PO SCH ×3 (05:46→21:13)
[2021-01-20] MEDS: ACETAMINOPHEN 650MG/20.3ML UDC PO PRN ×2 (05:52→18:31)
[2021-01-20 08:00] VITALS: BP 138/56
[2021-01-20] MEDS: ASCORBIC ACID 500 MG TABLET PO SCH (08:17)
[2021-01-20] MEDS: SENNOSIDES/DOCUSATE SOD 8.6/50MG TABLET PO SCH ×2 (08:17→17:00)
[2021-01-20] MEDS: ASPIRIN 81MG TABLET PO SCH (08:17)
[2021-01-20 20:00] VITALS: BP 145/83
[2021-01-20] MEDS ORDERED: ASCO500C18 PO (20:02)
[2021-01-20] MEDS ORDERED: SENN-293 PO (20:03)
[2021-01-20] MEDS ORDERED: DOXA2TAB PO (20:04)
[2021-01-20] MEDS ORDERED: ATOR20TA PO (20:04)
[2021-01-20] MEDS ORDERED: ASPI-1406 PO (20:08)
[2021-01-20] MEDS ORDERED: DILT30TA38 PO (20:09)
[2021-01-20] MEDS: DOXAZOSIN MESYLATE 2MG TABLET PO SCH (21:12)
[2021-01-20] MEDS: ATORVASTATIN CALCIUM 20MG TABLET PO SCH (21:12)
[2021-01-21] MEDS: ACETAMINOPHEN 650MG/20.3ML UDC PO PRN (04:21)
[2021-01-21] MEDS: DILTIAZEM HCL 30MG TABLET PO SCH ×2 (05:28→14:50)
[2021-01-21 08:25] VITALS: BP 119/87
[2021-01-21] MEDS: ASPIRIN 81MG TABLET PO SCH (08:27)
[2021-01-21] MEDS: ASCORBIC ACID 500 MG TABLET PO SCH (08:28)
[2021-01-21] MEDS: SENNOSIDES/DOCUSATE SOD 8.6/50MG TABLET PO SCH (08:28)
[2021-01-21 13:41] VITALS: BP 119/87
== END 2021-01-21 15:45 | disposition home health service (06) | DRG 65 ==
LOC: MERGE 21:12 → EEVIPCON 21:12
PROVIDERS: ADMIT Psychiatry & Neurology Neurology; ATTEND Internal Medicine Nephrology
DX: I60.9 Nontraumatic subarachnoid hemorrhage, unspecified (principal); Z68.43 Body mass index [BMI] 50.0-59.9, adult; N17.9 Acute kidney failure, unspecified; I13.0 Hypertensive heart and chronic kidney disease with heart failure and stage 1 through stage 4 chronic kidney disease, or unspecified chronic kidney disease; R47.01 Aphasia; E66.01 Morbid (severe) obesity due to excess calories; N18.9 Chronic kidney disease, unspecified; R56.9 Unspecified convulsions; I48.91 Unspecified atrial fibrillation; G47.30 Sleep apnea, unspecified; I50.9 Heart failure, unspecified; I95.1 Orthostatic hypotension; M19.90 Unspecified osteoarthritis, unspecified site; R32 Unspecified urinary incontinence; R79.1 Abnormal coagulation profile; T45.515A Adverse effect of anticoagulants, initial encounter; F06.34 Mood disorder due to known physiological condition with mixed features; R26.89 Other abnormalities of gait and mobility; Y92.89 Other specified places as the place of occurrence of the external cause; I25.2 Old myocardial infarction; R15.9 Full incontinence of feces; Z86.73 Personal history of transient ischemic attack (TIA), and cerebral infarction without residual deficits
CPT/HCPCS: 36415; 80048; 83735; 84100; 85025; 92523; 92610; 93970; 97110; 97112; 97116; 97163; 97166; 97530; 97535; A4565; A6261

== ENCOUNTER → 2021-03-30 | Outpatient (CLI) | payer BC ==
[~2021-03-30] MED LIST changes: +ASCO500C18 PO; +ASPI-1406 PO; +ATOR20TA PO; +DILT30TA38 PO; +DOXA2TAB PO; +SENN-293 PO
== END | disposition home or self-care (01) ==
LOC: CT 13:30
DX: G31.89 Other specified degenerative diseases of nervous system (principal); I60.8 Other nontraumatic subarachnoid hemorrhage

== ENCOUNTER 2021-05-07 08:39 | Emergency (ER) | payer BC ==
[~2021-05-07] VITALS: Ht 167.6 cm; Wt 137.0 kg
[2021-05-07] MEDS ORDERED: LEVETIRACETAM 1000MG PREMIX 100 ML IV ONE (09:15)
[2021-05-07 09:52] LABS: BASOPHILS % 0.3 % (0.0-2.0); HEMATOCRIT. 34.9 % (36.0-48.0); HEMOGLOBIN. 11.5 g/dL (12.0-16.0); MEAN CORPUSCULAR HEMOGLOBIN 27.7 pg (28.0-32.0); MEAN CORPUSCULAR VOLUME 83.9 fL (81.0-99.0); MEAN PLATELET VOLUME 9.7 fl (7.4-10.4); MONOCYTES % 8.4 % (2.0-8.0); NEUTROPHILS % 68.3 % (40.0-76.0); PLATELET 134 x1000/uL (130-400); RED BLOOD CELL COUNT 4.16 mill/uL (4.2-5.4); RED CELL DISTRIBUTION WIDTH 16.8 % (11.6-14.6)
[2021-05-07 10:05] LABS: CHLORIDE 108 mEq/L (98-107)
[2021-05-07] MEDS ORDERED: KEPP500 MT (10:28)
[2021-05-07 10:56] VITALS: BP 143/68
== END 2021-05-07 11:28 | disposition home or self-care (01) ==
LOC: ER 08:39
DX: R56.9 Unspecified convulsions (principal); I10 Essential (primary) hypertension; I25.2 Old myocardial infarction; Z86.73 Personal history of transient ischemic attack (TIA), and cerebral infarction without residual deficits; Z79.899 Other long term (current) drug therapy
CPT/HCPCS: 36415; 70450; 80053; 85025; 96365; 99284; J1953; Z7610

== ENCOUNTER → 2021-07-07 | Outpatient (CLI) | payer BC ==
[~2021-07-07] MED LIST changes: +KEPP500 MT
[2021-07-07 09:22] LABS: CHLORIDE 111 mEq/L (98-107)
[2021-07-07 09:29] LABS: HDL CHOLESTEROL 78 mg/dL (40-59); LDL CHOLESTEROL 57 mg/dL (5-100)
== END | disposition home or self-care (01) ==
LOC: LAB 08:46
PROVIDERS: ATTEND Family Medicine
DX: Z13.1 Encounter for screening for diabetes mellitus (principal); I10 Essential (primary) hypertension; E78.5 Hyperlipidemia, unspecified
CPT/HCPCS: 36415; 80053; 80061; 83036

== ENCOUNTER 2022-08-17 18:04 | Emergency (ER) | payer BC, OTHER ==
[~2022-08-17] VITALS: Ht 160 cm; Wt 133.8 kg
[~2022-08-17 18:04] MED LIST changes: +DILT30TA37 PO; -DILT30TA38 PO; +DOXA-14 PO; -DOXA2TAB PO
[2022-08-17 18:30] VITALS: TEMP 98.7; O2SAT 98
[2022-08-17] MEDS ORDERED: T3 PO (20:51)
[2022-08-17 21:07] VITALS: BP 154/67; PULSE 57; RESP 18
== END 2022-08-17 21:11 | disposition home or self-care (01) ==
LOC: ER 18:16
DX: M79.671 Pain in right foot (principal); I10 Essential (primary) hypertension; I25.2 Old myocardial infarction; Z86.73 Personal history of transient ischemic attack (TIA), and cerebral infarction without residual deficits; Z79.899 Other long term (current) drug therapy
CPT/HCPCS: 73630; 99283